=== PATIENT | male | born 1965 | race Caucasian/White ===

== ENCOUNTER 2021-06-11 14:16 | Outpatient (CLI) | payer MEDICAID, SELFPAY ==
--- NOTE | ~2021-06-11 | XR_ITS ---
EXAMINATION: XR knee RT 3V DATE: 06/11/2021 14:58 INDICATION: Right knee pain. TECHNIQUE: 3 views of right knee were obtained. COMPARISON: None. FINDINGS: There is lateral subluxation of patella. No fracture. There is mild osteoarthritis of media l compartment and moderate osteoarthritis of patellofemoral compartment. There is chondrocalcinosis o f the menisci. There is a small knee joint effusion. There is anterior knee soft tissue swelling. IMPRESSION: 1. Moderate right knee osteoarthritis. 2. Small right knee joint effusion. Reviewed, dictated and finalized at location A. MECHANISM MAKER
--- NOTE | ~2021-06-11 | XR_ITS ---
EXAMINATION: XR knee LT 3V DATE: 06/11/2021 14:58 INDICATION: Left knee pain. TECHNIQUE: 3 views of left knee were obtained. COMPARISON: None. FINDINGS: There is lateral subluxation of patella. No fracture. There is mild osteoarthritis of media l and lateral compartments and severe osteoarthritis of patellofemoral compartment. There is a modera te-sized knee joint effusion. IMPRESSION: 1. Severe left knee osteoarthritis. 2. Moderate-sized left knee joint effusion. Reviewed, dictated and finalized at location A. REAMER MACHINE OPERATOR
--- NOTE | ~2021-06-11 | XR_ITS ---
XR chest 2V 06/11/2021 14:58 Indication: Heart failure. New onset of shortness of breath. Procedure: PA and lateral views of the chest Comparison: Comparison to multiple prior studies sequentially, with oldest reviewed study dated 04/13. Findings: Status post median sternotomy for CABG. Cardiomegaly with mild interstitial edema. Small ri ght and moderate left pleural effusions. No pneumothorax. Impression: 1: Mild cardiomegaly with mild interstitial edema. 2: Bilateral pleural effusions, left greater than right. Reviewed, dictated and finalized at location B. O MACHINIST Impression: 1: Mild cardiomegaly with mild interstitial edema. 2: Bilateral pleural effusions, left greater than right.
--- NOTE | 2021-06-11 15:05 | ECG_ITS ---
Measurements Intervals [place] Rate: 99 P: 60 ND: 180 QRS: 110 QRSD: 94 T: -19 QT: 338 QTc: 435 Interpretive Statements SINUS RHYTHM RIGHT AXIS DEVIATION DELAYED PRECORDIAL R/S TRANSITION BORDERLINE ST-T WAVE ABNORMALITY- INFERIOR LEADS BORDERLINE ECG Electronically Signed On 06-11-2021 17:57:51 BLOOM CONVEYOR OPERATOR by Roe Rob D.O.
== END 2021-06-11 14:17 | disposition home or self-care (01) ==
PROVIDERS: PCP Family Medicine; Referring Provider Internal Medicine Cardiovascular Disease; Visit Provider Family Medicine
DX: I50.9 Heart failure, unspecified (principal); M25.461 Effusion, right knee; M17.0 Bilateral primary osteoarthritis of knee; M25.462 Effusion, left knee; J90 Pleural effusion, not elsewhere classified; I51.7 Cardiomegaly; R94.31 Abnormal electrocardiogram [ECG] [EKG]
CPT/HCPCS: 71046; 73562; 93005

== ENCOUNTER 2021-06-12 20:42 | Inpatient (IN) | payer OTHER, SELFPAY ==
--- NOTE | ~2021-06-12 | XR_ITS ---
EXAMINATION: XR chest 1V portable DATE: 06/12/2021 21:25 INDICATION: Shortness of breath. TECHNIQUE: A single frontal view of the chest was obtained. COMPARISON: Chest 2 views 06/11/2021, chest CT 10/14/2017 FINDINGS: There is a small left pleural effusion. There are airspace opacities in left mid and lower lung zones and right lower lung zone. No pneumothorax. Cardiomegaly is noted. There are changes of he art valve replacement. IMPRESSION: 1. Stable small left pleural effusion. 2. Worsened airspace opacities in left mid and lower lung zones and right lower lung zone, consistent with atelectasis versus pneumonia. 3. Cardiomegaly. Reviewed, dictated and finalized at location A. E DIALYSIS REGISTERED NURSE
--- NOTE | ~2021-06-12 | US_ITS ---
EXAMINATION: US venous doppler [facility] DATE: 06/14/2021 10:23 INDICATION: Shortness of breath and lower limb swelling TECHNIQUE: Grayscale ultrasound images without and with compression and Doppler ultrasound images of the bilateral lower extremity veins were obtained. COMPARISON: None. FINDINGS: The visualized portions of right common femoral vein, profunda (deep) femoral vein, femoral vein, pop liteal vein, posterior tibial veins, peroneal veins, gastrocnemius vein and greater saphenous vein ou tflow are patent. The visualized portions of left common femoral vein, profunda femoral vein, femoral vein, popliteal v ein, posterior tibial veins, peroneal veins, gastrocnemius vein and greater saphenous vein outflow ar e patent. IMPRESSION: 1. No deep venous thrombosis in either lower limb. Reviewed, dictated and finalized at location A. H ROLL WINDER
--- NOTE | ~2021-06-12 | CT_ITS ---
EXAMINATION: CT chest abdomen pelvis wo con DATE: 06/14/2021 16:36 INDICATION: Splenomegaly. TECHNIQUE: Computed tomography (CT) of the chest, abdomen, and pelvis was performed without intraveno us contrast. Automated exposure control and iterative reconstruction technique were employed. The dos e-length product was 1907.35 mGy-cm. COMPARISON: Chest CT 06/13/2021 FINDINGS: CHEST CT: There is mild atelectasis bilaterally. Calcified pulmonary nodules are consistent with old granulomat ous disease. There is a small left pleural effusion with pleural thickening. There is rounded atelect asis in left lower lobe adjacent to the pleura. Cardiomegaly is noted. There are coronary artery calc ifications. There are changes of coronary artery bypass grafting. Pericardial calcifications are note d. No pericardial effusion. There is mild mediastinal lymphadenopathy. ABDOMEN/PELVIS CT: The liver is normal. There is mild splenomegaly measuring 17.4 cm. There are gallstones in the gallbl adder, which is normal in size. The pancreas, adrenal glands, and kidneys are normal. There is no uro lithiasis. There is diverticulosis of the colon without evidence of diverticulitis. The appendix is n ot visualized. There is a small volume of ascites. Body wall edema is noted. There is a subxiphoid ve ntral hernia containing fat. There is mild left para-aortic lymphadenopathy. There is mild thoracolum bar spondylosis. IMPRESSION: 1. Stable small left pleural effusion with pleural thickening, likely an exudate. 2. Small volume of ascites. 3. Mild splenomegaly. 4. Mild mediastinal and left paracolic lymphadenopathy, likely reactive. 5. Calcific pericarditis. Reviewed, dictated and finalized at location A. DER OPERATOR EXTERNAL TOOL IMPRESSION: 1. Stable small left pleural effusion with pleural thickening, likely an exudat e. 2. Small volume of ascites. 3. Mild splenomegaly. 4. Mild mediastinal and left paracolic lymphadenopathy, likely reactive. 5. Calcific pericarditis.
--- NOTE | ~2021-06-12 | US_ITS ---
US abdomen complete EXAMINATION: US Abdomen Complete INDICATION: Acute renal insufficiency. PROCEDURE: Realtime High Resolution abdomen ultrasound. COMPARISON: No prior studies for comparison FINDINGS: There are echogenic foci in the gallbladder lumen which may represent stones or sludge. Meagan luation limited by patient body habitus. There is gallbladder wall thickening. Common bile duct karla ures 5 mm. Liver echotexture within normal limits without focal mass. Pancreas within normal limits. Pancreati c tail is obscured by bowel gas. Spleen is enlarged measuring 17.5 cm. Renal echotexture is within n ormal limits bilaterally without hydronephrosis, contour deforming mass or renal stone. Right kidney measures 11.9 cm. Left kidney measures 11.5 cm. Visualized aspects of the aorta and IVC are within normal limits. Portal vein is patent. No sonograph ic Sarah's sign indicated by the technologist. IMPRESSION: 1: Splenomegaly. 2: Echogenic foci in the gallbladder lumen which may represent stones or sludge. Mild gallbladder wa ll thickening. Reviewed, dictated and finalized at location A. EL BRIDGE ASSEMBLER IMPRESSION: 1: Splenomegaly. 2: Echogenic foci in the gallbladder lumen which may represent stones or sludg e. Mild gallbladder wall thickening.
--- NOTE | ~2021-06-12 | CT_ITS ---
EXAMINATION: CT tibia/fibula LT wo con DATE: 06/19/2021 16:41 INDICATION: Left justin/ankle cellulitis with persistent pain TECHNIQUE: High resolution computed tomography (CT) of the left tibia/fibula was performed without in travenous contrast. Additional sagittal and coronal reconstructions were performed. Automated exposur e control and iterative reconstruction technique were employed. The dose-length product was 1201.42 m Gy-cm. COMPARISON: None FINDINGS: Approximately 1 cm lateral patellar subluxation. Alignment is otherwise normal throughout the recess left lower leg from the distal thigh through the ankle and visualized hindfoot. Moderate to severe os teoarthritis at the patellofemoral articulation with joint space narrowing at the lateral side of the patellofemoral compartment with some cortical remodeling and mild subarticular cystlike changes mer g both the lateral patellar facet and lateral side of the lateral trochlea. Tiny marginal osteophytes at both the medial and lateral compartments. Cystic change at the intercondylar eminence. Small left knee joint effusion. Joint space at the left ankle and hindfoot are normal. Small Achilles calcaneal spurs. No cortical erosion or periosteal reaction to suggest osteomyelitis. No left ankle joint effusion. There is diffuse subcutaneous edema in the distal thigh through the vis ualized forefoot. There is skin thickening throughout the catheter with distal predominance which pepper ng the duodenum is consistent with given history of cellulitis. No loculated fluid collections to sug gest abscess. No subcutaneous gas or foreign bodies. There is thickening of the peroneal tendons at t he level of the tip of the lateral malleolus consistent with tendinopathy. IMPRESSION: 1. Skin thickening and subcutaneous edema throughout the left calf consistent with cellulitis without evident abscess, soft tissue gas or osteomyelitis. 2. Moderate to severe left patellofemoral osteoarthritis. 3. Peroneal tendinopathy. Reviewed, dictated and finalized at location B. SCRIPTION MANAGER IMPRESSION: 1. Skin thickening and subcutaneous edema throughout the left calf consistent w ith cellulitis without evident abscess, soft tissue gas or osteomyelitis. 2. Moderate to severe left patellofemoral osteoarthritis. 3. Peroneal tendinopathy.
--- NOTE | ~2021-06-12 | CT_ITS ---
EXAMINATION: CT diagnostic chest wo con DATE: 06/13/2021 04:21 INDICATION: Left lower lobe pneumonia TECHNIQUE: Computed tomography (CT) of the chest was performed without intravenous contrast. The dose -length product was 906.92 mGy-cm. Automated exposure control and iterative reconstruction technique were employed. COMPARISON: CT dated 10/14/2017 FINDINGS: Small left and trace right pleural effusions with underlying compressive atelectasis. Cardi omegaly with pericardial calcification, which can be associated with constrictive pericarditis. There are nonenlarged mediastinal lymph nodes, most likely reactive. Status post median sternotomy for CAB G. Stable nonspecific left adrenal thickening. Small amount of ascites in the upper abdomen partially visualized. No endobronchial lesions. There is a upper abdominal ventral hernia containing fat. Ther e are scattered pulmonary nodules throughout both lungs, most of which are calcified, consistent with chronic granulomatous disease. Mild thoracic spondylosis. IMPRESSION: 1. Small pleural effusions, left greater than right with underlying compressive atelectasis. Superimp osed pneumonia not excluded. 2: Cardiomegaly with pericardial calcifications. Correlate clinically for indications of constrictive pericarditis. 3: Ascites. Reviewed, dictated and finalized at location B. TECHNICAL ARCHITECT IMPRESSION: 1. Small pleural effusions, left greater than right with underlying compressive atelectasis. Superimposed pneumonia not excluded. 2: Cardiomegaly with pericardial calcifications. Correlate clinically for indic ations of constrictive pericarditis. 3: Ascites.
[2021-06-12 20:56] VITALS: BP 164/92; PULSE 126; RESP 33; TEMP 37.5; O2SAT 89
[2021-06-12 21:02] VITALS: PULSE 126; O2SAT 94
--- NOTE | 2021-06-12 21:15 | ECG_ITS ---
Measurements Intervals [place] Rate: 125 P: 55 MO: 150 QRS: 112 QRSD: 93 T: 27 QT: 274 QTc: 396 Interpretive Statements SINUS TACHYCARDIA DELAYED PRECORDIAL R/S TRANSITION BORDERLINE T WAVE ABNORMALITY- INF/HIGH LAT LEADS BASELINE ARTIFACT- I, II, III, AVR, AVL, AVF, V3-V6 ABNORMAL ECG Electronically Signed On 06-13-2021 6:32:44 WAD IMPREGNATOR by Roe Rob D.O.
--- NOTE | 2021-06-12 21:22 | ED.GENADULT ---
HPI - General Adult General Chief complaint: Shortness of Breath/Dyspnea Stated complaint: sob chills hx chf Time Seen by Provider: 06/12/21 21:06 History of Present Illness HPI narrative: Patient 56-year-old gentleman who presents the emergency department with chief complaint of shortness of breath. Patient reports that he has history of a cardiac bypass in the past around 2016 the patient states he has not had insurance and is noticed over the last month or so that has been having increasing peripheral edema and increasing shortness of breath worse with exertion. The patient states he has 3 pillow orthopnea reports that he is having episodes of PND as well patient states that he just got approval for insurance and went and saw her primary care physician for referral to cardiology but stated that his breathing got worse today. The patient reports he is not on home oxygen. Patient reports that he has pitting edema all the way up to his abdominal wall Related Data Allergies Allergy/AdvReac Type Severity Reaction Status Date / Time No Known Allergies Allergy Verified 06/12/21 21:02 Review of Systems Review of Systems: A 10 system review of systems was completed on the patient and is negative except for what is stated in the HPI. Nursing and ancillary documentation was reviewed. [facility] Family History Family History Mother Patient's mother is in good health Diabetes mellitus Father Carcinoma of colon, Onset Age: 36 Sibling Colon polyp Other Family history of coronary artery disease Social History Social History Smoking status: Former smoker Smoking end date: 07/13/15 Alcohol intake: never Exam Narrative: GENERAL: Well-appearing, well-nourished, and in no acute distress. HEAD: Normocephalic, atraumatic. EYES: PERRLA and EOMI. ENT: Nares clear, no rhinorrhea or epistaxis. Mucous membranes moist. NECK: Supple. CHEST: Clear to auscultation. Mild respiratory distress. HEART: Regular rate and rhythm. No murmur heard. Normal peripheral pulses. ABDOMEN: Soft, nontender, nondistended, normal active bowel sounds. EXTREMITIES: Normal range of motion. 4+ edema. SKIN: Warm, dry, no rash. NEURO: No focal deficits. Alert and oriented x3. PSYCH: Normal mood and affect. Course Vital Signs Vital signs: Vital Signs Temperature 37.5 C 06/12/21 20:56 Pulse Rate 126 H 06/12/21 20:56 Respiratory Rate 33 H 06/12/21 20:56 Blood Pressure 164/92 H 06/12/21 20:56 Pulse Oximetry 89 L 06/12/21 20:56 Temperature 37.5 C 06/12/21 20:56 Pulse Rate 126 H 06/12/21 21:02 Respiratory Rate 33 H 06/12/21 20:56 Blood Pressure 164/92 H 06/12/21 20:56 Pulse Oximetry 94 06/12/21 21:02 Medical Decision Making Vital Signs Vital Signs: Vital Signs Temperature 37.5 C 06/12/21 20:56 Pulse Rate 126 H 06/12/21 20:56 Respiratory Rate 33 H 06/12/21 20:56 Blood Pressure 164/92 H 06/12/21 20:56 Pulse Oximetry 89 L 06/12/21 20:56 Temperature 37.5 C 06/12/21 20:56 Pulse Rate 126 H 06/12/21 21:02 Respiratory Rate 33 H 06/12/21 20:56 Blood Pressure 164/92 H 06/12/21 20:56 Pulse Oximetry 94 06/12/21 21:02 Lab Data Result diagrams: 06/12/21 22:03 06/12/21 22:04 Labs: Lab Results 06/12/21 06/12/21 06/12/21 Range/Units 22:03 22:04 22:04 WBC 17.1 H (4.5-10.0) K/mm3 RBC 3.84 L (4.6-6.20) M/mm3 Hgb 11.5 L (14.0-18.0) g/dL Hct 36.8 L (42.0-52.0) % MCV 95.8 (80-100) fl MCH 29.9 (26-34) pg MCHC 31.3 L (32-36) g/dl RDW 18.3 H (11.5-14.5) % Plt Count 126 L (150-375) k/mm3 MPV 10.4 (7.4-10.4) fl Immature Gran % (Auto) 0.8 H (0-0.5) % Neut % (Auto) 91.2 H (45.5-73.1) % Lymph % (Auto) 2.3 L (18.3-44.2) % Lee % (Auto) 4.7 (2.6-8.5) % Eos % (Auto) 0
[2021-06-12 21:43] LABS: Alveolar/Arterial O2 Gradient 103.8 mmHg; Base Excess ABG 0.3 mEq/l (+/-2.0); Fractional Inspired Oxygen 28 %; HCO3 ABG 22.5 mEq/l (22.0-26.0); Oxygen Content ABG 15.5 %vol (16.0-22.0); Oxygen Saturation ABG 93.9 % (95.0-100.0); Oxyhemoglobin 90.3 % THb (90.0-100.0); PCO2 ABG 29.1 mmHg (35.0-45.0); PO2 ABG 61.5 mmHg (80.0-100.0); Total Hemoglobin 12.2 g/dL (12.0-18.0)
[2021-06-12 21:44] LABS: Device NASAL CANNULA; Modified Allen's Test Pass; Site Drawn RIGHT RADIAL; pH ABG 7.506 (7.350-7.450)
[2021-06-12] MEDS: NITROGLYCERIN OINTMENT 1 INCH DOSE TRANSDERM (22:10)
[2021-06-12] MEDS: FUROSEMIDE INJ 40 MG/4 ML VIAL IV PUSH (22:10)
[2021-06-12 22:19] LABS: Basophils Absolute Auto 0.1 K/mm3 (0.0-0.1); Basophils Percent Auto 0.5 % (0.2-1.2); Eosinophils Absolute Auto 0.1 K/mm3 (0-0.3); Eosinophils Percent Auto 0.5 % (0-4.4); Hematocrit 36.8 % (42.0-52.0); Hemoglobin 11.5 g/dL (14.0-18.0); Immature Granulocyte Absolute 0.14 K/mm3 (0.00-0.031); Immature Granulocyte Percent A 0.8 % (0-0.5); Immature Platelet Fraction Pct 4.5 % (0.9-11.2); Lymphocytes Absolute Auto 0.39 K/mm3 (0.9-3.2); Lymphocytes Percent Auto 2.3 % (18.3-44.2); Mean Corpuscular HGB Conc 31.3 g/dl (32-36); Mean Corpuscular Hemoglobin 29.9 pg (26-34); Mean Corpuscular Volume 95.8 fl (80-100); Mean Platelet Volume 10.4 fl (7.4-10.4); Monocytes Absolute Auto 0.8 K/mm3 (0.1-0.6); Monocytes Percent Auto 4.7 % (2.6-8.5); Neutrophils Absolute Auto 15.6 K/mm3 (1.3-6.7); Neutrophils Percent Auto 91.2 % (45.5-73.1); Platelet Count Result 126 k/mm3 (150-375); Red Blood Count 3.84 M/mm3 (4.6-6.20); Red Cell Distribution Width 18.3 % (11.5-14.5); White Blood Count 17.1 K/mm3 (4.5-10.0)
[2021-06-12 22:33] LABS: Alanine Aminotransferase 20 U/L (4-50); Albumin Level 4.4 g/dL (3.5-5.1); Alkaline Phosphatase 138 U/L (38-126); Anion Gap 9 mmol/L (8-16); Aspartate Amino Transferase 36 U/L (17-59); Bilirubin,Total 2.8 mg/dL (0.2-1.3); Blood Urea Nitrogen 18 mg/dL (9-20); Calcium 9.7 mg/dL (8.4-10.2); Carbon Dioxide 27 mmol/L (22-30); Chloride 98 mmol/L (98-107); Estimated CRCL calculation 81 ml/min; Estimated Glomerular Filt Rate 52; Glucose 117 mg/dL (65-110); INR 1.4; Magnesium 1.7 mg/dL (1.6-2.3); Potassium 4.6 mmol/L (3.4-5.0); Sodium 134 mmol/L (137-145)
[2021-06-12 22:34] LABS: Lactic Acid Reflex 2.2 mmol/L (0.7-2.1); Partial Thromboplastin Time 30.5 SECONDS (22.3-36.8)
[2021-06-12 23:09] LABS: NT Pro B Type Natriuretic Pept 4390 pg/mL (5-100); Troponin I 0.046 ng/mL (0.000-0.034)
[2021-06-12] MEDS: ASPIRIN 81 MG CHEWABLE TABLET 324 MG PO (23:47)
[2021-06-12 23:48] VITALS: BP 127/69; PULSE 126; RESP 26; O2SAT 93
[2021-06-13] VITALS (70 sets, daily range): BP systolic 94–137; BP diastolic 58–86; PULSE 95–124; RESP 16–31; TEMP 36.8; O2SAT 91–100; BMI 45.2
--- NOTE | 2021-06-13 | ECHO_ITS ---
Patient Info Name: Donta Copeland Age: 56 years : 1965 Gender: Male Ht: 72 in Wt: 342 lbs BSA: 2.88 m2 HR: 100 bpm BP: 107 / 72 mmHg Heart Rhythm: Sinus Rhythm Technical Quality: Poor Exam Date: 06/13/2021 11:57 AM Exam Location: [facility] Patient Status: Inpatient Admit Date: 06/13/2021 Staff Ordering Physician: Rajat Li MD Gas Singer: Kamla Pinto RDCS Attending Provider: Rajat Li MD Exam Type: CA echo dop color flow w con Study Info Indications R06.02 - Shortness of breath - ELEVATED TROPONIN Complete two-dimensional, color flow and Doppler transthoracic echocardiogram is performed with contrast to opacify the left ventricle and to improve the deliniation of the left ventricle endocardial borders. Contrast/Agitated Saline Contrast/Ag. Saline: Definity Amount: 2.00 ml Administered By: Ashley Ch RN Electric Track Switch Maintainer Services Existing IV Access: Yes IV Access Condition: patent with no signs of infiltration Reason for Poor Study: patient body habitus Summary 1. Mild left ventricular enlargement with mild concentric hypertrophy. Overall good systolic function of all segments, ejection fraction 55-60%, with no segmental wall motion abnormalities. Grade 2 diastolic dysfunction is noted. 2. Right ventricular chamber dimension is mildly enlarged with mild to moderate hypokinesis, though poorly visualized. 3. A mitral valve annuloplasty ring appears to be present. There is trace mitral regurgitation. 4. There is flattening of the interventricular septum during systole and diastole consistent volume overload. 5. Moderate pulmonary hypertension, estimated pulmonary arterial systolic pressure is 55 mmHg. 6. There is mild tricuspid valve regurgitation. 7. Technically difficult study. 8. Sinus rhythm. Left Ventricle Left ventricular chamber dimension is mildly enlarged. Left ventricular systolic function is normal, estimated at 55-60%. There is mildly increased left ventricular wall thickness. Left ventricular septal wall motion is normal. The left ventricular diastolic function is grade II diastolic dysfunction. Right Ventricle Right ventricular chamber dimension is mildly enlarged with mild to moderate hypokinesis, though poorly visualized. Right ventricular systolic function is reduced. Left Atria Left atrial chamber dimension is severely enlarged. Right Atria Right atrial chamber dimension is normal. Aortic Valve The aortic valve is trileaflet. There is moderate aortic valve sclerosis. There is no aortic valve stenosis. There is no aortic valve regurgitation. There is mild aortic valve calcification. Pulmonic Valve The pulmonic valve is normal. There is no pulmonic valve stenosis. There is no pulmonic regurgitation. Mitral Valve The annuloplasty ring prosthetic mitral valve leaflefts are Empty. There is no stenosis of the annuloplasty ring prosthetic mitral valve. There is trace regurgitation of the annuloplasty ring prosthetic mitral valve. Tricuspid Valve The tricuspid valve leaflets are normal. There is no significant tricuspid valve stenosis. There is mild tricuspid valve regurgitation. Moderate pulmonary hypertension, estimated pulmonary arterial systolic pressure is 55 mmHg. Pericardium/Pleural The pericardium appears normal. There is no pericardial effusion. Inferior Vena Cava Not well visualized inferior vena ca
[2021-06-13 01:15] LABS: Reflex Lactic Acid Yes or No Add Lactic
[2021-06-13 02:38] LABS: Lactic Acid 2.4 mmol/L (0.7-2.1)
--- NOTE | 2021-06-13 03:53 | PM.IMHP ---
H&P: HPI History of Present Illness Date/Time: 06/13/21 03:53 Chief Complaint: Shortness of breath Narrative: This is a 56-year-old gentleman who presents to the ER with complaint of shortness of breath. He has a history of coronary artery disease status post bypass surgery in 2017 has lost follow-up due to lack of insurance. He noticed increasing lower extremity edema and worsening shortness of breath on exertion since past month or so. There is also associated orthopnea and episodes of PND. He had had gone to see his primary care doctor with metal referral to Cardiology but since the breathing got worse he came to the ER for evaluation. He denies any chest pain. Delete that In the ER he was noted to be hypoxia was placed on oxygen via nasal cannula. He was also noted to be tachycardic 120s upon arrival. Laboratory evaluation showed leukocytosis 17,000 with mild thrombocytopenia. Mild renal insufficiency noted with creatinine of 1.4 along with lactic acidosis of 2.4. He had the mildly elevated troponin at 0.046 with elevated BNP of 4390. His ABG showed respiratory alkalosis. His EKG showed sinus tachycardia with out any acute ST-T changes. A chest x-ray revealed small left pleural effusion with consultation on left mid and lower zone along with cardiomegaly. 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 The biopsy was nondiagnostic at that time with findings of scant fragments of fibrin, blood and degenerated cells. He states that follow up CT chest after that showed resolution of the mass. He is admitted for further evaluation and management Review of Systems Review of Systems: - CONSTITUTIONAL: Denies weight loss, fever and chills. - HEENT: Denies changes in vision and hearing - RESPIRATORY: reports SOB and denies cough. - CV: Denies palpitations and CP. - GI: Denies abdominal pain, nausea, vomiting and diarrhea. - : Denies dysuria and urinary frequency. - MSK: Denies myalgia and joint pain. - SKIN: Denies rash and pruritus. - NEUROLOGICAL: Denies headache and syncope. - PSYCHIATRIC: Denies recent changes in mood. Denies anxiety and depression. All systems reviewed & are unremarkable except as noted in HPI and below Constitutional: Constitutional: Reports fatigue and Reports weakness Neurologic: Reports weakness Endocrine: Endocrine: Reports fatigue PMFSH Family History Family History Mother Patient's mother is in good health Diabetes mellitus Father Carcinoma of colon, Onset Age: 36 Sibling Colon polyp Other Family history of coronary artery disease Social History Social History Smoking status: Former smoker Smoking end date: 07/13/15 Alcohol intake: never Meds Home Medications and Allergies Home Medications Medication Instructions Recorded Confirmed Type atorvastatin 40 mg tablet 40 mg PO .COMPLEX #90 tablet 08/02/19 Rx Allergies Allergy/AdvReac Type Severity Reaction Status Date / Time No Known Allergies Allergy Verified 06/12/21 21:02 Vital Signs Vital Signs - 24 hr 06/12/21 20:56 06/12/21 21:02 06/12/21 23:48 Temperature 99.5 F Pulse Rate 126 H 126 H 126 H Respiratory Rate 33 H 26 H Blood Pressure 164/92 H 127/69 Pulse Oximetry 89 L 94 93 06/13/21 00:01 06/13/21 01:34 06/13/21 02:01 Temperature Pulse Rate 124 H 118 H 117 H Respiratory Rate 24 H 24 H 24 H Blood Pressure 113/58 L 94/62 L 102/67 Pulse Oximetry 91 92 95 06/13/21 03:00 Temperature Pulse Rate 114 H Respiratory Rate 22 H Blood Pressure 116/65 Pulse Oximetry 96 Exam Narrative: GENERAL: Well-appearing, well-nourished, and in no acute distress. HEAD: Normocephalic, atraumatic. EYES: PERRLA and EOMI. ENT: Nares clear, no rhinorrhea or epistaxis. Mucous m
--- NOTE | 2021-06-13 07:17 | PC.NURSE ---
placed order for pt breakfast.
[2021-06-13] MEDS: POTASSIUM CHLORIDE 20 MEQ TABLET.ER PO ×2 (08:45→18:12)
[2021-06-13] MEDS: ASPIRIN 81 MG ENTERIC TABLET PO (08:45)
[2021-06-13] MEDS: ENOXAPARIN 40 MG/0.4 ML SYRINGE SUB-Q (08:46)
[2021-06-13] MEDS: FUROSEMIDE INJ 40 MG/4 ML VIAL 60 MG IV PUSH (09:00)
--- NOTE | 2021-06-13 12:47 | PC.NURSE ---
went in for food order but patient requested no food at this time only drink
[2021-06-13] MEDS: PERFLUTREN LIPID MICROSPHERES 1.5 ML VIAL DILUTED TO 10 ML TOTAL VOLUME IV PUSH (12:57)
--- NOTE | 2021-06-13 18:11 | PM.IMPN ---
Progress Note: A&P Assessment and Plan (1) Septicemia: Code(s): A41.9 - Sepsis, unspecified organism Status: Acute Assessment and Plan: Blood cultures x2 positive for Gram-positive cocci in chains in the anaerobic and aerobic bottles. Source is possibly lung but felt more likely from cellulitis. Could still be contaminant. Continue Rocephin. Add Vancomycin. Repeat BCx in 1-2 days (2) Cellulitis of left leg: Code(s): L03.116 - Cellulitis of left lower limb Status: Acute Assessment and Plan: Probably cellulitis of the left lower leg. Wll check dopplers. Continue IV abx. (3) Acute respiratory failure: Code(s): J96.00 - Acute respiratory failure, unspecified whether with hypoxia or hypercapnia Status: Acute Assessment and Plan: Patient presents with acute respiratory failure. CT without contrast showing mostly left side pleural effusion with airspace disease. Consider symptoms related to constrictive pericarditis. (4) Acute exacerbation of CHF (congestive heart failure): Qualifiers: Heart failure type: unspecified Qualified Code(s): I50.9 - Heart failure, unspecified Code(s): I50.9 - Heart failure, unspecified Status: Acute Assessment and Plan: BNP 4390. Chest x-ray and CT of the chest not showing significant pulmonary edema but he is massively edematous. CHF? Cirrhosis? Blood cultures positive. Cardiology consult ordered for the a constrictive pericarditis. Check abd US to assess for ascites, cirrhosis. 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 Consider constrictive pericarditis. (6) Elevated troponin: Code(s): R77.8 - Other specified abnormalities of plasma proteins Status: Acute Assessment and Plan: Troponin elevated to 1.21. EKG showing no acute changes and no chest pain. (7) Left lower lobe pneumonia: Code(s): J18.9 - Pneumonia, unspecified organism Status: Acute Assessment and Plan: Chest x-ray showing airspace opacities left mid lower lung zones. CT the chest without contrast showing small pleural effusions left greater than right with compressive atelectasis. Superimposed pneumonia cannot be excluded. Has a history of a left lung mass, with subsequent resolution. He was started Rocephin azithromycin which will continue. Blood cultures positive as mentioned above. Vancomycin added. (8) Lactic acidosis: Code(s): E87.2 - Acidosis Status: Acute Assessment and Plan: Lactic acid elevated on admission to 2.4. Related to above. (9) Chronic kidney disease, stage 3: Code(s): N18.30 - Chronic kidney disease, stage 3 unspecified Status: Acute Assessment and Plan: On previous visits, patient's creatinine has been noted run from 1.6-1.9. Creatinine 1.4 admission. He is not on IV fluids for with concern for CHF. Monitor creatinine closely while on IV Lasix. (10) Leukocytosis: Qualifiers: Leukocytosis type: unspecified Qualified Code(s): D72.829 - Elevated white blood cell count, unspecified Code(s): D72.829 - Elevated white blood cell count, unspecified Status: Acute Assessment [place] Plan: [place] [address] related to sepsis. As above. Continue to monitor. (11) DVT prophylaxis: Code(s): Z29.9 - Encounter for prophylactic measures, unspecified Status: Acute Assessment and Plan: Lovenox (12) CAD (coronary artery disease): Code(s): I25.10 - Atherosclerotic heart disease of [place] coronary artery without angina pectoris Status: Acute Assessment and Plan: hx of CAD s/p CABG 2017, lost follow up since then. Has seen Dr. Spears in the past. Continue ASA, Lipitor. Subjective Date/time seen:
[2021-06-13 19:04] LABS: Hematocrit 32.9 % (42.0-52.0); Hemoglobin 10.5 g/dL (14.0-18.0); Mean Corpuscular HGB Conc 31.9 g/dl (32-36); Mean Corpuscular Hemoglobin 30.2 pg (26-34); Mean Corpuscular Volume 94.5 fl (80-100); Mean Platelet Volume 11.9 fl (7.4-10.4); Platelet Count Result 93 k/mm3 (150-375); Red Blood Count 3.48 M/mm3 (4.6-6.20); Red Cell Distribution Width 18.5 % (11.5-14.5)
[2021-06-13 19:12] LABS: Anion Gap 12 mmol/L (8-16); Blood Urea Nitrogen 26 mg/dL (9-20); Carbon Dioxide 23 mmol/L (22-30); Chloride 98 mmol/L (98-107); Estimated CRCL calculation 68 ml/min; Estimated Glomerular Filt Rate 42; Glucose 108 mg/dL (65-110); Sodium 133 mmol/L (137-145)
[2021-06-13 19:26] LABS: Lactic Acid Reflex 1.7 mmol/L (0.7-2.1)
[2021-06-13] MEDS: ATORVASTATIN 40 MG TABLET PO (22:23)
--- NOTE | 2021-06-13 23:46 | ADMGEN ---
This patient, Donta Copeland, was admitted to IMU Room 211-01 at 2340. Patient/family oriented to hospital policies and general routines including ID bracelet, bed and alarms, visiting hours, pain management, procedures, bathroom and other care routines, personal items, smoking policy, room service/diet, and visiting hours. Information on how to activate the Rapid Response Team has been discussed. Patient/Family are encouraged to report perceived risks to care and to ask questions if they do not understand what they are told or what they should do.
[2021-06-14] VITALS (17 sets, daily range): BP systolic 110–136; BP diastolic 73–82; PULSE 97–107; RESP 18–22; TEMP 36.1–37.1; O2SAT 98–100
[2021-06-14 05:45] LABS: Basophils Absolute Auto 0.1 K/mm3 (0.0-0.1); Basophils Percent Auto 0.4 % (0.2-1.2); Eosinophils Percent Auto 0.2 % (0-4.4); Hematocrit 30.9 % (42.0-52.0); Hemoglobin 9.8 g/dL (14.0-18.0); Immature Granulocyte Absolute 0.07 K/mm3 (0.00-0.031); Immature Granulocyte Percent A 0.5 % (0-0.5); Immature Platelet Fraction Pct 6.1 % (0.9-11.2); Lymphocytes Absolute Auto 0.67 K/mm3 (0.9-3.2); Lymphocytes Percent Auto 4.8 % (18.3-44.2); Mean Corpuscular HGB Conc 31.7 g/dl (32-36); Mean Corpuscular Hemoglobin 29.9 pg (26-34); Mean Corpuscular Volume 94.2 fl (80-100); Mean Platelet Volume 11.6 fl (7.4-10.4); Monocytes Absolute Auto 0.9 K/mm3 (0.1-0.6); Monocytes Percent Auto 6.6 % (2.6-8.5); Neutrophils Absolute Auto 12.3 K/mm3 (1.3-6.7); Neutrophils Percent Auto 87.5 % (45.5-73.1); Platelet Count Result 96 k/mm3 (150-375); Red Blood Count 3.28 M/mm3 (4.6-6.20); Red Cell Distribution Width 18.2 % (11.5-14.5)
[2021-06-14 05:51] LABS: Alanine Aminotransferase 24 U/L (4-50); Albumin Level 3.7 g/dL (3.5-5.1); Alkaline Phosphatase 101 U/L (38-126); Anion Gap 10 mmol/L (8-16); Aspartate Amino Transferase 66 U/L (17-59); Bilirubin,Total 2.9 mg/dL (0.2-1.3); Blood Urea Nitrogen 26 mg/dL (9-20); Calcium 8.7 mg/dL (8.4-10.2); Carbon Dioxide 23 mmol/L (22-30); Chloride 97 mmol/L (98-107); Estimated CRCL calculation 71 ml/min; Estimated Glomerular Filt Rate 45; Glucose 123 mg/dL (65-110); Potassium 3.8 mmol/L (3.4-5.0); Sodium 130 mmol/L (137-145)
[2021-06-14] MEDS: ASPIRIN 81 MG ENTERIC TABLET PO (08:39)
[2021-06-14] MEDS: ENOXAPARIN 40 MG/0.4 ML SYRINGE SUB-Q (08:39)
[2021-06-14] MEDS: POTASSIUM CHLORIDE 20 MEQ TABLET.ER PO ×2 (08:40→17:08)
[2021-06-14] MEDS: FUROSEMIDE INJ 40 MG/4 ML VIAL 60 MG IV PUSH ×2 (08:40→21:39)
[2021-06-14 09:47] LABS: Add Urine Microscopic? YES; Appearance Urine Cloudy (Clear); Bilirubin Urine Negative (Negative); Blood Urine 1+ (Negative); Color Urine Amber (Yellow); Glucose Urine UA Negative (Negative); Ketones Urine Negative (Negative); Leukocyte Esterase Ur Negative LEU/UL (Negative); Mucus Urine Rare /lpf; Nitrate Urine Negative (Negative); Protein Urine 1+ mg/dL (Negative); Specific Grav Ur 1.027 (1.001-1.035); Squamous Epithelial Cell Urine Rare /hpf (Few); WBC Urine 0-3 /hpf
--- NOTE | 2021-06-14 10:06 | PM.IMPN ---
Progress Note: A&P Assessment and Plan (1) Septicemia: Code(s): A41.9 - Sepsis, unspecified organism Status: Acute Assessment and Plan: Blood cultures x2 positive for Strept G. Source is felt more likely from cellulitis. Continue Rocephin. Stop Vancomycin. Follow up on BCx results. (2) Cellulitis of left leg: Code(s): L03.116 - Cellulitis of left lower limb Status: Acute Assessment and Plan: Patient with cellulitis of the left lower leg. LE dopplers negative for DVT. Continue IV abx. (3) Acute respiratory failure: Code(s): J96.00 - Acute respiratory failure, unspecified whether with hypoxia or hypercapnia Status: Acute Assessment and Plan: Patient presents with acute respiratory failure. CT without contrast showing mostly left side pleural effusion with airspace disease. [place] related to CHF. Sepsis related to cellulits. (4) Acute exacerbation of CHF (congestive heart failure): Qualifiers: Heart failure type: unspecified Qualified Code(s): I50.9 - Heart failure, unspecified Code(s): I50.9 - Heart failure, unspecified Status: Acute Assessment and Plan: BNP 4390. Chest x-ray and CT of the chest not showing significant pulmonary edema but he is massively edematous. Echo showing EF55-60%, Grade II diastolic dysfunction, RV hypokinesis,volume overload with moderate pulmonary HTN. Mitral ring well placed. Blood cultures positive related to the cellulitis. Abd US showing splenomegaly but no evidence of cirrhosis or ascites. Continue Lasix IV. CHF teaching. Daily weights. Check for mono. Check CT abdomen given the enlarged spleen. Check LDH (5) Splenomegaly: Code(s): R16.1 - Splenomegaly, not elsewhere classified Status: Acute Assessment and Plan: Abd US showing splenomegaly but no evidence of cirrhosis or ascites. Plt count low but stable felt related to splenomegaly so may be more chronic. Etiology could be CHF, mono, bacterial septicemia, viral hepatitis, HIV, RA, SLE or sarcoid. 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 Echo showing normal pericardium and no effusion. Constrictive pericarditis felt less likely. Echo 04/25/17 showing moderate pericardial effusion and evidence of post-pericardectomy. Suspect CT scan findings related to previous surgery. (7) Elevated troponin: Code(s): R77.8 - Other specified abnormalities of plasma proteins Status: Acute Assessment and Plan: Troponin elevated to 1.21. EKG showing no acute changes and no chest pain. Suspect nonischemic myocardial injury relaetd to the fluid overload and sepsis. (8) Left lower lobe pneumonia: Code(s): J18.9 - Pneumonia, unspecified organism Status: Acute Assessment and Plan: Chest x-ray showing airspace opacities left mid lower lung zones. CT the chest without contrast showing small pleural effusions left greater than right with compressive atelectasis. Superimposed pneumonia cannot be excluded but felt less likely. Has a history of a left lung mass with subsequent resolution. He was started Rocephin and azithromycin which will continue. Blood cultures positive as mentioned above. Vancomycin added. (9) Lactic acidosis: Code(s): E87.2 - Acidosis Status: Acute Assessment and Plan: Lactic acid elevated on admission to 2.4 but normal on repeat. Related to above. (10) CAD (coronary artery disease): Code(s): I25.10 - Atherosclerotic heart disease of [place] coronary artery without angina pectoris Status: Acute Assessment and Plan: Patient presented 03/25/17 with SOB and found to have inferior STEMI. He underwent LHC but unable to open a thrombosed RCA. Severe MR noted. He was sent to [facility] for CABG x2 ([facility]
--- NOTE | 2021-06-14 13:49 | PC.NURSE ---
On 06/14/21, the student, [Cassie Huffman], provided care and completed [facility] documentation on this patient. I have reviewed the student's documentation and agree with the findings.
--- NOTE | 2021-06-14 14:50 | PM.CNCAR ---
Assessment and Plan Additional Plan 56-year-old man with history of coronary artery disease presenting with acute coronary syndrome several years ago in 2017 at that time he was referred to [facility] for surgical revascularization on also had mitral valve ring annuloplasty performed. He does not have any left ventricular systolic dysfunction and enters the hospital with marked volume overload which obviously has accumulated over a long time more than several weeks which is what he describes by history. It is interesting that his chest auscultation sounds quite clear despite the congested appearance of his x-ray. He has responded so some IV furosemide. There was also concern about the appearance of his CT that his pericardium is calcified and he may have some constrictive physiology. At this time I would recommend continuing IV loop diuretics and I would start a moderate dose of metoprolol and lisinopril. He does have some chronic kidney disease but this is not new and not a contraindication to KENNETH-inhibitor therapy. I would anticipate is going to take a fairly long hospitalization to improve the marked volume overload with which he presents. Once he is discharged we can certainly discuss with him arranging for advanced imaging such as cardiac MRI at [place] to further evaluate the issue about constrictive physiology. Heath Mckenzie MD [facility] History of Present Illness History of Present Illness Consult date/time: 06/14/21 14:50 Consult reason: congestive heart failure Reason For Visit: CHF Acute Exacerbation, Elevated Trop,Leukocytosis Narrative: This is a 56-year-old man with a history of coronary artery disease and valvular heart disease who I am seeing at the request of the hospitalist for assistance with the management of congestive heart failure as well as regarding concerns about possible constrictive pericarditis. The patient is unknown to me prior to this consultation. He had been under the care of my partner, Dr. Marcelino in the past but has not seen him for a couple of years because he said he lost his insurance and could not afford appointments. Because of this he has not been on any of his medication for about that period of time. He lives at home with his mother and apparently he has been experiencing progressive lower extremity volume overload with edema up to the waist for a long time. He then started to experience some shortness of breath and decided to come into the hospital yesterday. He was found to be markedly volume overloaded. Echocardiogram was done yesterday and interpreted by my partner showing normal left ventricular systolic function, grade 2 diastolic noncompliance and evidence of at least moderately elevated pulmonary artery pressure. A CT scan of his chest did not show any evidence of pulmonary embolism but was remarkable for pericardial calcification and so the thought was the patient could also have constrictive physiology. In this setting I am seeing him in consultation today. He has been receiving intravenous furosemide with some diuresis since admission yesterday. He is not receiving any other medical treatment for this and I am seeing him in consultation in this situation. He does not report any chest pain he is not reporting any orthopnea. He has no history of palpitations or syncope. According to the records he has a history of coronary artery disease presenting initially in 2017 with acute coronary syndrome. He was sent to [facility] for surgical myocardial revascularization apparently he had a totally occluded right coronary artery and received BALWINDER graft to the LAD and a vein graft to the RPDA. He also had a mitral valve ring annuloplasty performed. The chart indicates there was some postoperative atrial fibrillation that for a period of time was managed with amiodarone and that had subsequently been discontinued. Once again his last visit in our office was in 2019. Review of Systems Constitution
[2021-06-14] MEDS: CHOLECALCIFEROL 1,000 UNITS TABLET 2000 UNITS PO (17:08)
[2021-06-14] MEDS: MULTIVITAMINS THERAPEUTIC TAB (*BKC) 1 TABLET PO (17:09)
--- NOTE | 2021-06-14 18:26 | ECG_ITS ---
Measurements Intervals [place] Rate: 96 P: 64 WV: 153 QRS: 104 QRSD: 105 T: -14 QT: 345 QTc: 437 Interpretive Statements SINUS RHYTHM VENTRICULAR PREMATURE COMPLEX RIGHT AXIS DEVIATION DELAYED PRECORDIAL R/S TRANSITION BORDERLINE T WAVE ABNORMALITY- INF/LAT LEADS BORDERLINE ECG Electronically Signed On 06-14-2021 15:13:25 [employer] by Roe Rob D.O.
[2021-06-14] MEDS: FAMOTIDINE 10 MG TABLET PO (21:40)
[2021-06-14] MEDS: ATORVASTATIN 40 MG TABLET PO (21:41)
[2021-06-14] MEDS: FERROUS SULFATE 324 MG TABLET PO (21:41)
[2021-06-15] VITALS (18 sets, daily range): BP systolic 103–135; BP diastolic 58–79; PULSE 84–98; RESP 18–22; TEMP 35.6–37.1; O2SAT 92–100
--- NOTE | 2021-06-15 00:05 | PCRCNOTE ---
Apnea link not done tonight due to patient being given lasix at bed time. Apnea link will be completed the night of 06/15/21
[2021-06-15 08:11] LABS: Basophils Percent Auto 0.5 % (0.2-1.2); Eosinophils Absolute Auto 0.2 K/mm3 (0-0.3); Eosinophils Percent Auto 2.1 % (0-4.4); Hematocrit 31.7 % (42.0-52.0); Hemoglobin 9.9 g/dL (14.0-18.0); Immature Granulocyte Absolute 0.03 K/mm3 (0.00-0.031); Immature Granulocyte Percent A 0.4 % (0-0.5); Immature Platelet Fraction Pct 8.3 % (0.9-11.2); Lymphocytes Absolute Auto 0.59 K/mm3 (0.9-3.2); Lymphocytes Percent Auto 7.6 % (18.3-44.2); Mean Corpuscular HGB Conc 31.2 g/dl (32-36); Mean Corpuscular Hemoglobin 29.1 pg (26-34); Mean Corpuscular Volume 93.2 fl (80-100); Mean Platelet Volume 11.6 fl (7.4-10.4); Monocytes Absolute Auto 0.6 K/mm3 (0.1-0.6); Monocytes Percent Auto 7.7 % (2.6-8.5); Neutrophils Absolute Auto 6.4 K/mm3 (1.3-6.7); Neutrophils Percent Auto 81.7 % (45.5-73.1); Platelet Count Result 92 k/mm3 (150-375); Red Cell Distribution Width 17.9 % (11.5-14.5); White Blood Count 7.8 K/mm3 (4.5-10.0)
[2021-06-15 08:25] LABS: Alanine Aminotransferase 26 U/L (4-50); Albumin Level 3.8 g/dL (3.5-5.1); Alkaline Phosphatase 100 U/L (38-126); Anion Gap 9 mmol/L (8-16); Aspartate Amino Transferase 55 U/L (17-59); Bilirubin Direct 0.3 mg/dL (0-0.3); Bilirubin,Total 2.7 mg/dL (0.2-1.3); Blood Urea Nitrogen 25 mg/dL (9-20); Calcium 8.4 mg/dL (8.4-10.2); Carbon Dioxide 28 mmol/L (22-30); Chloride 94 mmol/L (98-107); Estimated CRCL calculation 86 ml/min; Estimated Glomerular Filt Rate 57; Glucose 127 mg/dL (65-110); Lactate Dehydrogenase 863 U/L (313-618); Magnesium 2.1 mg/dL (1.6-2.3); Phosphorus 3.1 mg/dL (2.5-4.5); Potassium 3.5 mmol/L (3.4-5.0); Sodium 131 mmol/L (137-145)
[2021-06-15 08:26] LABS: Rheumatoid Factor < 8.6 IU/ML (<12)
[2021-06-15 08:31] LABS: Monoscreen Negative (Negative)
[2021-06-15 08:32] LABS: Negative Monotest Control Negative (Negative); Positive Monotest Control Positive (Positive)
[2021-06-15 08:39] LABS: Vancomycin Trough 21.9 ug/mL (10.0-20.0)
[2021-06-15] MEDS: ASPIRIN 81 MG ENTERIC TABLET PO (08:50)
[2021-06-15] MEDS: POTASSIUM CHLORIDE 20 MEQ TABLET.ER PO ×2 (08:50→18:30)
[2021-06-15] MEDS: MULTIVITAMINS THERAPEUTIC TAB (*BKC) 1 TABLET PO (08:50)
[2021-06-15] MEDS: CHOLECALCIFEROL 1,000 UNITS TABLET 2000 UNITS PO (08:50)
[2021-06-15] MEDS: FUROSEMIDE INJ 40 MG/4 ML VIAL 60 MG IV PUSH (08:51)
[2021-06-15] MEDS: ENOXAPARIN 40 MG/0.4 ML SYRINGE SUB-Q (08:51)
[2021-06-15] MEDS: METOPROLOL SUCCINATE EXT REL 50 MG TABCR PO (08:51)
[2021-06-15] MEDS: lisinopriL 5 MG TABLET PO (08:51)
[2021-06-15 09:04] LABS: Hepatitis B Surface Antigen Negative (Negative)
[2021-06-15 09:09] LABS: HIV 1/2 Ab P24 Ag Result Negative (Negative)
[2021-06-15 09:10] LABS: HAV RESULT Negative (Negative); Hepatitis B Core IgM Result Negative (Negative)
[2021-06-15 09:21] LABS: Hepatitis C Virus Antibody Negative (Negative)
--- NOTE | 2021-06-15 10:46 | PM.IMPN ---
Progress Note: A&P Assessment and Plan (1) Septicemia: Code(s): A41.9 - Sepsis, unspecified organism Status: Acute Assessment and Plan: Blood cultures x2 positive for Strept G. Source is felt more likely from cellulitis. Continue Rocephin. Stop Vancomycin vanc level was supratherapeutic. Repeat blood culture to confirm resolution if no resolution of blood culture will get ID jorgeal (2) Cellulitis of left leg: Code(s): L03.116 - Cellulitis of left lower limb Status: Acute Assessment and Plan: Patient with cellulitis of the left lower leg. LE dopplers negative for DVT. Continue IV Rocephin follow up repeat blood culture. (3) Acute respiratory failure: Code(s): J96.00 - Acute respiratory failure, unspecified whether with hypoxia or hypercapnia Status: Acute Assessment and Plan: Most likely multifactorial related to sepsis CHF cellulitis and pleural effusion and calcified pericarditis improved (4) Acute exacerbation of CHF (congestive heart failure): Qualifiers: Heart failure type: unspecified Qualified Code(s): I50.9 - Heart failure, unspecified Code(s): I50.9 - Heart failure, unspecified Status: Acute Assessment and Plan: BNP 4390. Chest x-ray and CT of the chest not showing significant pulmonary edema but he is massively edematous. Echo showing EF55-60%, Grade II diastolic dysfunction, RV hypokinesis,volume overload with moderate pulmonary HTN. Mitral ring well placed. Blood cultures positive related to the cellulitis. 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 Follow-up with cardiology as outpatient (7) Elevated troponin: Code(s): R77.8 - Other specified abnormalities of plasma proteins Status: Acute Assessment and Plan: Most likely NSTEMI type 2 secondary to demand ischemia secondary to sepsis and CHF exacerbation (8) Left lower lobe pneumonia: Code(s): J18.9 - Pneumonia, unspecified organism Status: Acute Assessment and Plan: I do not think patient has pneumonia patient currently on antibiotic for cellulitis of lower extremity (9) Lactic acidosis: Code(s): E87.2 - Acidosis Status: Acute Assessment and Plan: Lactic acid elevated on admission to 2.4 but normal on repeat. Most likely related to sepsis (10) CAD (coronary artery disease): Code(s): I25.10 - Atherosclerotic heart disease of [place] coronary artery without angina pectoris Status: Acute Assessment and Plan: Patient presented 03/25/17 with SOB and found to have inferior STEMI. He underwent LHC but unable to open a thrombosed RCA. Severe MR noted. He was sent to [facility] for CABG x2 (BANG to LAD and SVG to posterior descending). He did have postop AFib as well.He was lost to follow up since then. Has seen Dr. Spears in the past. Continue ASA, Lipitor. (11) Chronic kidney disease, stage 3: Code(s): N18.30 - Chronic kidney disease, stage 3 unspecified Status: Acute Assessment and Plan: Monitor renal function daily as patient is on IV Lasix (12) DVT prophylaxis: Code(s): Z29.9 - Encounter for prophylactic measures, unspecified Status: Acute Assessment and Plan: Lovenox Subjective Date/time seen: 06/15/21 10:46 Interval history: 56 years old male with past medical history of lung mass morbid obesity spleno
--- NOTE | 2021-06-15 14:38 | PM.PNCARD ---
Progress Note: A&P Assessment and Plan (1) Acute exacerbation of CHF (congestive heart failure): Qualifiers: Heart failure type: unspecified Qualified Code(s): I50.9 - Heart failure, unspecified Code(s): I50.9 - Heart failure, unspecified Status: Acute Assessment and Plan: Slowly improving with IV Lasix. Continue accurate input and output, daily weight. If urine output drops off discussed uptitration in dose or frequency or change to continuous IV Lasix infusion. Will observe today. Monitor renal function electrolytes very closely. (2) Elevated troponin: Code(s): R77.8 - Other specified abnormalities of plasma proteins Status: Acute Assessment and Plan: Type 2 infarction not acute coronary syndrome and/or plaque rupture. (3) CAD (coronary artery disease): Code(s): I25.10 - Atherosclerotic heart disease of [place] coronary artery without angina pectoris Status: Acute Assessment and Plan: Stable, asymptomatic. Continue medical therapy with aspirin, statin Toprol XL, lisinopril. (4) Cellulitis of left leg: Code(s): L03.116 - Cellulitis of left lower limb Status: Acute Assessment and Plan: Per primary service. IV antibiotics. (5) Septicemia: Code(s): A41.9 - Sepsis, unspecified organism Status: Acute Assessment and Plan: Positive blood cultures thought secondary to cellulitis. Continue clinical observation. Per primary service. If persistent positive blood cultures and or new significant murmur further evaluation may be warranted given history of mitral valve annuloplasty. (6) Status post mitral valve annuloplasty: Code(s): Z98.890 - Other specified postprocedural states Status: Acute Assessment and Plan: Stable. As above. Subjective Date/time seen: Date of service: 06/15/21 14:38 Follow-up for acute on chronic decompensated heart failure with preserved ejection fraction Patient feeling better. Still with significant edema but breathing slowly improving. He states he is urinating very well on IV Lasix. No chest pain or palpitations. No new issues overnight. Review of Systems Review of Systems: All systems reviewed & are unremarkable except as noted in HPI and below Constitutional: Constitutional: Reports as per HPI, Reports lethargy and Reports weakness Eyes: Eyes: Reports as per HPI and Reports no additional eye complaints ENT: Reports system reviewed and no additional complaints, except as documented and Reports as per HPI Cardiovascular: Cardiovascular: Reports as per HPI, Denies chest pain, Reports leg edema and Denies palpitations Respiratory: Respiratory: Reports as per HPI, Denies cough, Denies hemoptysis, Reports dyspnea and Reports dyspnea on exertion Gastrointestinal: Gastrointestinal: Reports as per HPI, Reports no additional gastrointestinal complaints and Reports bloating Genitourinary: Genitourinary: Reports as per HPI and Reports urinary frequency Musculoskeletal: Musculoskeletal: Reports no additional musculoskeletal complaints and Reports as per HPI Integumentary/Breasts: Skin/Breast: Reports system reviewed and no additional complaints, except as docu and Reports as per HPI Neurologic: Reports as per HPI and Reports weakness Psychiatric: Psychiatric: Reports as per HPI Endocrine: Endocrine: Reports no additional endocrine complaints and Reports as per HPI Hematologic/Lymphatic: Hematologic/Lymphatic: Reports no additional hematologic/lymphatic complaints and Reports as per HPI Allergic/Immunologic: Allergic/Immunologic: Reports no additional allergic/immunologic complaints and Reports as per HPI Exam Const: General: comfortable and no acute distress Other: Morbidly obese white male sleeping flat in bed when I entered the room to cm is mother was at his side. Upon awakening he is comfortable and is not in any distress. HENMT: Mouth: Yes moist mucous membrane
[2021-06-15] MEDS: FUROSEMIDE INJ 100 MG/10 ML VIAL 60 MG IV PUSH (18:30)
[2021-06-15] MEDS: ATORVASTATIN 40 MG TABLET PO (20:46)
[2021-06-15] MEDS: FAMOTIDINE 10 MG TABLET PO (20:46)
[2021-06-15] MEDS: FERROUS SULFATE 324 MG TABLET PO (20:46)
[2021-06-16] VITALS (14 sets, daily range): BP systolic 98–112; BP diastolic 59–73; PULSE 79–88; RESP 16–24; TEMP 36.2–37.2; O2SAT 92–99
[2021-06-16] MEDS: CHOLECALCIFEROL 1,000 UNITS TABLET 2000 UNITS PO (09:18)
[2021-06-16] MEDS: POTASSIUM CHLORIDE 20 MEQ TABLET.ER PO ×2 (09:18→16:23)
[2021-06-16] MEDS: ASPIRIN 81 MG ENTERIC TABLET PO (09:19)
[2021-06-16] MEDS: ENOXAPARIN 40 MG/0.4 ML SYRINGE SUB-Q (09:19)
[2021-06-16] MEDS: FUROSEMIDE INJ 100 MG/10 ML VIAL 60 MG IV PUSH (09:19)
[2021-06-16] MEDS: METOPROLOL SUCCINATE EXT REL 50 MG TABCR PO (09:20)
[2021-06-16] MEDS: lisinopriL 5 MG TABLET PO (09:20)
[2021-06-16] MEDS: MULTIVITAMINS THERAPEUTIC TAB (*BKC) 1 TABLET PO (09:21)
[2021-06-16 11:09] LABS: Anion Gap 12 mmol/L (8-16); Blood Urea Nitrogen 29 mg/dL (9-20); Calcium 8.3 mg/dL (8.4-10.2); Carbon Dioxide 23 mmol/L (22-30); Chloride 95 mmol/L (98-107); Estimated CRCL calculation 80 ml/min; Estimated Glomerular Filt Rate 52; Glucose 143 mg/dL (65-110); Magnesium 2.1 mg/dL (1.6-2.3); Potassium 3.7 mmol/L (3.4-5.0); Sodium 130 mmol/L (137-145)
--- NOTE | 2021-06-16 12:09 | PM.IMPN ---
Progress Note: A&P Assessment and Plan (1) Septicemia: Code(s): A41.9 - Sepsis, unspecified organism Status: Acute Assessment and Plan: Blood cultures x2 positive for Strept G. Source is felt more likely from cellulitis. Continue Rocephin. Stop Vancomycin vanc level was supratherapeutic. Repeat blood culture to confirm resolution if no resolution of blood culture will get ID eval pending final repeat culture (2) Cellulitis of left leg: Code(s): L03.116 - Cellulitis of left lower limb Status: Acute Assessment and Plan: Patient with cellulitis of the left lower leg. LE dopplers negative for DVT. Continue IV Rocephin follow up pending final repeat blood culture. (3) Acute respiratory failure: Code(s): J96.00 - Acute respiratory failure, unspecified whether with hypoxia or hypercapnia Status: Acute Assessment and Plan: Most likely multifactorial related to sepsis CHF cellulitis and pleural effusion and calcified pericarditis improved (4) Acute exacerbation of CHF (congestive heart failure): Qualifiers: Heart failure type: unspecified Qualified Code(s): I50.9 - Heart failure, unspecified Code(s): I50.9 - Heart failure, unspecified Status: Acute Assessment and Plan: BNP 4390. Chest x-ray and CT of the chest not showing significant pulmonary edema but he is massively edematous. Echo showing EF55-60%, Grade II diastolic dysfunction, RV hypokinesis,volume overload with moderate pulmonary HTN. Mitral ring well placed. Blood cultures positive related to the cellulitis. 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 Follow-up with cardiology as outpatient (7) Elevated troponin: Code(s): R77.8 - Other specified abnormalities of plasma proteins Status: Acute Assessment and Plan: Most likely NSTEMI type 2 secondary to demand ischemia secondary to sepsis and CHF exacerbation (8) Left lower lobe pneumonia: Code(s): J18.9 - Pneumonia, unspecified organism Status: Acute Assessment and Plan: I do not think patient has pneumonia patient currently on antibiotic for cellulitis of lower extremity (9) Lactic acidosis: Code(s): E87.2 - Acidosis Status: Acute Assessment and Plan: Lactic acid elevated on admission to 2.4 but normal on repeat. Most likely related to sepsis (10) CAD (coronary artery disease): Code(s): I25.10 - Atherosclerotic heart disease of [place] coronary artery without angina pectoris Status: Acute Assessment and Plan: Patient presented 03/25/17 with SOB and found to have inferior STEMI. He underwent LHC but unable to open a thrombosed RCA. Severe MR noted. He was sent to [facility] for CABG x2 (BANG to LAD and SVG to posterior descending). He did have postop AFib as well.He was lost to follow up since then. Has seen Dr. Spears in the past. Continue ASA, Lipitor. (11) Chronic kidney disease, stage 3: Code(s): N18.30 - Chronic kidney disease, stage 3 unspecified Status: Acute Assessment and Plan: Monitor renal function daily as patient is on IV Lasix (12) DVT prophylaxis: Code(s): Z29.9 - Encounter for prophylactic measures, unspecified Status: Acute Assessment and Plan: Lovenox (13) Hyponatremia: Code(s): E87.1 - Hypo-osmola
--- NOTE | 2021-06-16 13:23 | PM.PNCARD ---
Progress Note: A&P Assessment and Plan (1) Acute exacerbation of CHF (congestive heart failure): Qualifiers: Heart failure type: unspecified Qualified Code(s): I50.9 - Heart failure, unspecified Code(s): I50.9 - Heart failure, unspecified Status: Acute Assessment and Plan: Very slow improvement now waning. Urine output falling off renal function slightly worse. Hyponatremic possibly due to diuretics. Continue accurate input and output, daily weight as these are not being done properly. Discussed change to Bumex 2 mg IV twice daily. He wants to avoid a Arndt catheter although I feel Lasix infusion may be the most reasonable would like to try and avoid. Will start Bumex this afternoon. Monitor renal function electrolytes very closely. Follow daily labs. Discussed at length with the patient. He verbalized understanding and agreed with plan of care. Balance with diuresis and renal function. Patient remains significantly volume overloaded. (2) Elevated troponin: Code(s): R77.8 - Other specified abnormalities of plasma proteins Status: Acute Assessment and Plan: Type 2 infarction not acute coronary syndrome and/or plaque rupture. (3) CAD (coronary artery disease): Code(s): I25.10 - Atherosclerotic heart disease of [place] coronary artery without angina pectoris Status: Acute Assessment and Plan: Stable, asymptomatic. Continue medical therapy with aspirin, statin Toprol XL, lisinopril. (4) Cellulitis of left leg: Code(s): L03.116 - Cellulitis of left lower limb Status: Acute Assessment and Plan: Per primary service. IV antibiotics. DVT prophylaxis. (5) Septicemia: Code(s): A41.9 - Sepsis, unspecified organism Status: Acute Assessment and Plan: Positive blood cultures thought secondary to cellulitis. Continue clinical observation. Per primary service. If persistent positive blood cultures and or new significant murmur further evaluation may be warranted given history of mitral valve annuloplasty. (6) Status post mitral valve annuloplasty: Code(s): Z98.890 - Other specified postprocedural states Status: Acute Assessment and Plan: Stable. As above. Subjective Date/time seen: Date of service: 06/16/21 13:23 Follow-up for CHF Patient notes his stomach is slightly less tense. Breathing not improved. Minimal shortness of breath. Feels tired. Denies chest pain or palpitations. No other issues overnight. He admits his urine output has dropped off as of yesterday afternoon and evening. Urine looking darker as well. Review of Systems Review of Systems: All systems reviewed & are unremarkable except as noted in HPI and below Constitutional: Constitutional: Reports as per HPI, Reports lethargy and Reports weakness Eyes: Eyes: Reports as per HPI and Reports no additional eye complaints ENT: Reports system reviewed and no additional complaints, except as documented and Reports as per HPI Cardiovascular: Cardiovascular: Reports as per HPI, Denies chest pain, Reports leg edema, Denies palpitations, Reports dyspnea and Reports dyspnea on exertion Respiratory: Respiratory: Reports as per HPI, Denies cough, Denies hemoptysis, Reports dyspnea and Reports dyspnea on exertion Gastrointestinal: Gastrointestinal: Reports as per HPI, Reports no additional gastrointestinal complaints and Reports bloating Genitourinary: Genitourinary: Reports as per HPI and Reports urinary frequency Musculoskeletal: Musculoskeletal: Reports no additional musculoskeletal complaints and Reports as per HPI Integumentary/Breasts: Skin/Breast: Reports system reviewed and no additional complaints, except as docu and Reports as per HPI Neurologic: Reports as per HPI and Reports weakness Psychiatric: Psychiatric: Reports as per HPI Endocrine: Endocrine: Reports no additional endocrine complaints, Reports as per HPI and Denies palp
[2021-06-16] MEDS: BUMETANIDE INJ 1 MG/4 ML VIAL 2 MG IV PUSH (16:22)
[2021-06-16] MEDS: FAMOTIDINE 10 MG TABLET PO (20:41)
[2021-06-16] MEDS: ATORVASTATIN 40 MG TABLET PO (20:41)
[2021-06-16] MEDS: FERROUS SULFATE 324 MG TABLET PO (20:41)
[2021-06-17] VITALS (18 sets, daily range): BP systolic 102–116; BP diastolic 58–75; PULSE 77–99; RESP 18–24; TEMP 36.3–36.8; O2SAT 93–99
[2021-06-17] MEDS: CHOLECALCIFEROL 1,000 UNITS TABLET 2000 UNITS PO (09:14)
[2021-06-17] MEDS: lisinopriL 5 MG TABLET PO (09:15)
[2021-06-17] MEDS: ASPIRIN 81 MG ENTERIC TABLET PO (09:15)
[2021-06-17] MEDS: METOPROLOL SUCCINATE EXT REL 50 MG TABCR PO (09:15)
[2021-06-17] MEDS: MULTIVITAMINS THERAPEUTIC TAB (*BKC) 1 TABLET PO (09:15)
[2021-06-17] MEDS: BUMETANIDE INJ 1 MG/4 ML VIAL 2 MG IV PUSH ×2 (09:16→18:19)
[2021-06-17] MEDS: ENOXAPARIN 40 MG/0.4 ML SYRINGE SUB-Q (09:16)
[2021-06-17] MEDS: POTASSIUM CHLORIDE 20 MEQ TABLET.ER PO ×2 (09:16→17:15)
--- NOTE | 2021-06-17 11:20 | PM.PNCARD ---
Progress Note: A&P Assessment and Plan (1) Acute exacerbation of CHF (congestive heart failure): Qualifiers: Heart failure type: unspecified Qualified Code(s): I50.9 - Heart failure, unspecified Code(s): I50.9 - Heart failure, unspecified Status: Acute Assessment and Plan: Very slow improvement now waning. Urine output has decreased despite change from furosemide to Bumex yesterday. Hyponatremic possibly due to diuretics. He also tells me he's drinking 2L water daily. Will start free water restriction, fluid restriction. Monitor renal function electrolytes very closely with daily BMP. Renal function stable today. He remains significantly volume overloaded - may require furosemide or bumex gtt but want to try to avoid this. Will increase metolazone to 5mg BID to be given 30 minutes prior to Bumex dose. If no improvement in urine output tomorrow will probably have to initiate diuretic gtt. Compressing stockings if able to tolerate with L leg cellulitis. Accurate I's & O's Daily weights 1500cc fluid restriction (2) Elevated troponin: Code(s): R77.8 - Other specified abnormalities of plasma proteins Status: Acute Assessment and Plan: Type 2 infarction not acute coronary syndrome and/or plaque rupture. (3) CAD (coronary artery disease): Code(s): I25.10 - Atherosclerotic heart disease of [place] coronary artery without angina pectoris Status: Acute Assessment and Plan: Stable, asymptomatic. Continue medical therapy with aspirin, statin Toprol XL, lisinopril. (4) Cellulitis of left leg: Code(s): L03.116 - Cellulitis of left lower limb Status: Acute Assessment and Plan: Per primary service. IV antibiotics. DVT prophylaxis. (5) Septicemia: Code(s): A41.9 - Sepsis, unspecified organism Status: Acute Assessment and Plan: Positive blood cultures thought secondary to cellulitis. Continue clinical observation. Per primary service. If persistent positive blood cultures and or new significant murmur further evaluation may be warranted given history of mitral valve annuloplasty. (6) Status post mitral valve annuloplasty: Code(s): Z98.890 - Other specified postprocedural states Status: Acute Assessment and Plan: Stable. As above. Subjective Date/time seen: 06/17/21 11:20 Cardiology follow up for diastolic HF Date of service 06/17/21: He feels okay today. He remains significantly volume overloaded. He tells me that his urine output has decreased over the past day and half for so despite changing him to Bumex. No chest pain, palpitations, shortness of breath. Review of Systems Review of Systems: All systems reviewed & are unremarkable except as noted in HPI and below Constitutional: Constitutional: Reports as per HPI, Reports lethargy and Reports weakness Eyes: Eyes: Reports as per HPI and Reports no additional eye complaints ENT: Reports system reviewed and no additional complaints, except as documented and Reports as per HPI Cardiovascular: Cardiovascular: Reports as per HPI, Denies chest pain, Reports leg edema, Denies palpitations, Reports dyspnea and Reports dyspnea on exertion Respiratory: Respiratory: Reports as per HPI, Denies cough, Denies hemoptysis, Reports dyspnea and Reports dyspnea on exertion Gastrointestinal: Gastrointestinal: Reports as per HPI, Reports no additional gastrointestinal complaints and Reports bloating Genitourinary: Genitourinary: Reports as per HPI and Reports urinary frequency Musculoskeletal: Musculoskeletal: Reports no additional musculoskeletal complaints and Reports as per HPI Integumentary/Breasts: Skin/Breast: Reports system reviewed and no additional complaints, except as docu and Reports as per HPI Neurologic: Reports as per HPI and Reports weakness Psychiatric: Psychiatric: Reports as per HPI Endocrine: Endocrine: Reports no additional endo
[2021-06-17 11:48] LABS: Hematocrit 32.9 % (42.0-52.0); Hemoglobin 10.7 g/dL (14.0-18.0); Immature Platelet Fraction Pct 5.2 % (0.9-11.2); Mean Corpuscular HGB Conc 32.5 g/dl (32-36); Mean Corpuscular Hemoglobin 30.3 pg (26-34); Mean Corpuscular Volume 93.2 fl (80-100); Mean Platelet Volume 11.2 fl (7.4-10.4); Platelet Count Result 146 k/mm3 (150-375); Red Blood Count 3.53 M/mm3 (4.6-6.20); Red Cell Distribution Width 17.6 % (11.5-14.5)
[2021-06-17 11:58] LABS: Alanine Aminotransferase 29 U/L (4-50); Albumin Level 3.8 g/dL (3.5-5.1); Alkaline Phosphatase 158 U/L (38-126); Anion Gap 9 mmol/L (8-16); Aspartate Amino Transferase 45 U/L (17-59); Bilirubin,Total 2.2 mg/dL (0.2-1.3); Blood Urea Nitrogen 29 mg/dL (9-20); Calcium 8.5 mg/dL (8.4-10.2); Carbon Dioxide 23 mmol/L (22-30); Chloride 95 mmol/L (98-107); Estimated CRCL calculation 80 ml/min; Estimated Glomerular Filt Rate 52; Glucose 118 mg/dL (65-110); Potassium 3.8 mmol/L (3.4-5.0); Sodium 127 mmol/L (137-145)
--- NOTE | 2021-06-17 13:10 | PM.IMPN ---
Progress Note: A&P Assessment and Plan (1) Septicemia: Code(s): A41.9 - Sepsis, unspecified organism Status: Acute Assessment and Plan: Blood cultures x2 positive for Strept G sensitive to Rocephin. Source is felt more likely from cellulitis but can not exclude PNA given the CT scan findings of small left pleural effusion with pleural thickening and adjacent rounded atelectasis in LLL. Continue Rocephin. Repeat BCx NGTD. (2) Cellulitis of left leg: Code(s): L03.116 - Cellulitis of left lower limb Status: Acute Assessment and Plan: Patient with cellulitis of the left lower leg. LE dopplers negative for DVT. Clinically resolving. Continue IV abx. (3) Acute respiratory failure: Code(s): J96.00 - Acute respiratory failure, unspecified whether with hypoxia or hypercapnia Status: Acute Assessment and Plan: Patient presents with acute respiratory failure. CT without contrast showing mostly left side pleural effusion with airspace disease. [place] related to CHF and less likely PNA. Sepsis related to cellulitis. Resolved and on room air now. (4) Acute exacerbation of CHF (congestive heart failure): Qualifiers: Heart failure type: unspecified Qualified Code(s): I50.9 - Heart failure, unspecified Code(s): I50.9 - Heart failure, unspecified Status: Acute Assessment and Plan: BNP 4390. Chest x-ray and CT of the chest not showing significant pulmonary edema but he is massively edematous. Echo showing EF55-60%, Grade II diastolic dysfunction, RV hypokinesis,volume overload with moderate pulmonary HTN. Mitral ring well placed. Abd US showing splenomegaly but no evidence of cirrhosis or ascites. Diuresis with poor results. Continue Bumex IV but consider advancing dose or metolazone. CHF teaching. Continue daily weights. (5) Splenomegaly: Code(s): R16.1 - Splenomegaly, not elsewhere classified Status: Acute Assessment and Plan: Abd US showing splenomegaly but no evidence of cirrhosis or ascites. Plt count low felt relate dto the sepsis more so then chronic. Plt count better today. HIV, Hepatitis panel, RF negative. Etiology could be CHF and/or bacterial septicemia. Consider also lymphoma SLE or sarcoid. 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 Echo showing normal pericardium and no effusion. Constrictive pericarditis felt less likely. Echo 04/25/17 showing moderate pericardial effusion and evidence of post-pericardectomy. Suspect CT scan findings related to previous surgery. (7) Elevated troponin: Code(s): R77.8 - Other specified abnormalities of plasma proteins Status: Acute Assessment and Plan: Troponin elevated to 1.21. EKG showing no acute changes and no chest pain. Suspect nonischemic myocardial injury related to the fluid overload and sepsis. (8) Left lower lobe pneumonia: Code(s): J18.9 - Pneumonia, unspecified organism Status: Acute Assessment and Plan: Chest x-ray showing airspace opacities left mid lower lung zones. CT the chest without contrast showing small left pleural effusion with pleural thickening with adjacent rounded atelectasis in LLL. Has a history of a left lung mass with subsequent resolution. Doubt PNA; he was started Rocephin which will continue for the cellulitis/bacteremia. Blood cultures positive as mentioned above. (9) Lactic acidosis: Code(s): E87.2 - Acidosis Status: Acute Assessment and Plan: Lactic acid elevated on admission to 2.4 but normal on repeat. Related to above. (10) CAD (coronary artery disease): Code(s): I25.10 - Atherosclerotic heart disease of [place] coronary artery without angina pectoris Status: Acute Assessment and Plan:
[2021-06-17] MEDS: metOLazone 2.5 MG TABLET PO (15:00)
[2021-06-17] MEDS: metOLazone 5 MG TABLET PO (17:16)
[2021-06-17] MEDS: FAMOTIDINE 10 MG TABLET PO (19:57)
[2021-06-17] MEDS: ATORVASTATIN 40 MG TABLET PO (19:57)
[2021-06-17] MEDS: FERROUS SULFATE 324 MG TABLET PO (19:57)
[2021-06-18] VITALS (13 sets, daily range): BP systolic 105–120; BP diastolic 59–67; PULSE 79–90; RESP 16–22; TEMP 36.2–38.1; O2SAT 96–99
[2021-06-18 05:41] LABS: Basophils Absolute Auto 0.1 K/mm3 (0.0-0.1); Basophils Percent Auto 0.9 % (0.2-1.2); Eosinophils Absolute Auto 0.3 K/mm3 (0-0.3); Eosinophils Percent Auto 3.9 % (0-4.4); Hematocrit 32.3 % (42.0-52.0); Hemoglobin 10.2 g/dL (14.0-18.0); Immature Granulocyte Absolute 0.09 K/mm3 (0.00-0.031); Immature Granulocyte Percent A 1.1 % (0-0.5); Lymphocytes Absolute Auto 0.79 K/mm3 (0.9-3.2); Lymphocytes Percent Auto 9.9 % (18.3-44.2); Mean Corpuscular HGB Conc 31.6 g/dl (32-36); Mean Corpuscular Hemoglobin 29.3 pg (26-34); Mean Corpuscular Volume 92.8 fl (80-100); Mean Platelet Volume 10.6 fl (7.4-10.4); Monocytes Absolute Auto 0.9 K/mm3 (0.1-0.6); Monocytes Percent Auto 11.7 % (2.6-8.5); Neutrophils Absolute Auto 5.8 K/mm3 (1.3-6.7); Neutrophils Percent Auto 72.5 % (45.5-73.1); Platelet Count Result 147 k/mm3 (150-375); Red Blood Count 3.48 M/mm3 (4.6-6.20); Red Cell Distribution Width 17.9 % (11.5-14.5)
[2021-06-18 05:43] LABS: Albumin Level 3.8 g/dL (3.5-5.1); Anion Gap 9 mmol/L (8-16); Blood Urea Nitrogen 28 mg/dL (9-20); Calcium 8.9 mg/dL (8.4-10.2); Carbon Dioxide 29 mmol/L (22-30); Chloride 93 mmol/L (98-107); Estimated CRCL calculation 80 ml/min; Estimated Glomerular Filt Rate 52; Glucose 98 mg/dL (65-110); Phosphorus 3.5 mg/dL (2.5-4.5); Potassium 3.3 mmol/L (3.4-5.0); Sodium 131 mmol/L (137-145)
[2021-06-18] MEDS: ASPIRIN 81 MG ENTERIC TABLET PO (08:18)
[2021-06-18] MEDS: POTASSIUM CHLORIDE 20 MEQ TABLET.ER PO ×2 (08:18→17:11)
[2021-06-18] MEDS: BUMETANIDE INJ 1 MG/4 ML VIAL 2 MG IV PUSH ×2 (08:18→17:10)
[2021-06-18] MEDS: ENOXAPARIN 40 MG/0.4 ML SYRINGE SUB-Q (08:19)
[2021-06-18] MEDS: CHOLECALCIFEROL 1,000 UNITS TABLET 2000 UNITS PO (08:19)
[2021-06-18] MEDS: METOPROLOL SUCCINATE EXT REL 50 MG TABCR PO (08:19)
[2021-06-18] MEDS: MULTIVITAMINS THERAPEUTIC TAB (*BKC) 1 TABLET PO (08:19)
[2021-06-18] MEDS: metOLazone 5 MG TABLET PO ×2 (08:19→17:11)
[2021-06-18] MEDS: lisinopriL 5 MG TABLET PO (08:19)
--- NOTE | 2021-06-18 10:30 | PM.PNCARD ---
Progress Note: A&P Assessment and Plan (1) Acute exacerbation of CHF (congestive heart failure): Qualifiers: Heart failure type: unspecified Qualified Code(s): I50.9 - Heart failure, unspecified <JOSH Pereira - Last Filed: 06/18/21 10:44> Code(s): I50.9 - Heart failure, unspecified <JOSH Pereira - Last Filed: 06/18/21 10:44> Status: Acute <JOSH Pereira - Last Filed: 06/18/21 10:44> Assessment and Plan: Very slow improvement in volume status but he is looking better today, making more urine. He has slightly less edema on his upper thighs Continue 1.5L fluid restriction Monitor renal function electrolytes very closely with daily BMP. Renal function stable today. He remains significantly volume overloaded, but making better urine with Bumex 2mg IV b.i.d and increase in metolazone. He is 3.7L negative currently since MN last night. Slow progress. Compressing stockings if able to tolerate with L leg cellulitis. Accurate I's & O's Daily weights <JOSH Pereira - Last Filed: 06/18/21 10:44> (2) Elevated troponin: Code(s): R77.8 - Other specified abnormalities of plasma proteins <JOSH Pereira - Last Filed: 06/18/21 10:44> Status: Acute <JOSH Pereira - Last Filed: 06/18/21 10:44> Assessment and Plan: Type 2 infarction not acute coronary syndrome and/or plaque rupture. <JOSH Pereira - Last Filed: 06/18/21 10:44> (3) CAD (coronary artery disease): Code(s): I25.10 - Atherosclerotic heart disease of [place] coronary artery without angina pectoris <JOSH Pereira - Last Filed: 06/18/21 10:44> Status: Acute <JOSH Pereira - Last Filed: 06/18/21 10:44> Assessment and Plan: Stable, asymptomatic. Continue medical therapy with aspirin, statin Toprol XL, lisinopril. <JOSH Pereira - Last Filed: 06/18/21 10:44> (4) Cellulitis of left leg: Code(s): L03.116 - Cellulitis of left lower limb <JOSH Pereira - Last Filed: 06/18/21 10:44> Status: Acute <JOSH Pereira - Last Filed: 06/18/21 10:44> Assessment and Plan: Per primary service. IV antibiotics. DVT prophylaxis. <JOSH Pereira - Last Filed: 06/18/21 10:44> (5) Septicemia: Code(s): A41.9 - Sepsis, unspecified organism <JOSH Pereira - Last Filed: 06/18/21 10:44> Status: Acute <JOSH Pereira - Last Filed: 06/18/21 10:44> Assessment and Plan: Positive blood cultures thought secondary to cellulitis. Continue clinical observation. Per primary service. If persistent positive blood cultures and or new significant murmur further evaluation may be warranted given history of mitral valve annuloplasty. <JOSH Pereira - Last Filed: 06/18/21 10:44> (6) Status post mitral valve annuloplasty: Code(s): Z98.890 - Other specified postprocedural states <JOSH Pereira - Last Filed: 06/18/21 10:44> Status: Acute <JOSH Pereira - Last Filed: 06/18/21 10:44> Assessment and Plan: Stable. As above. <JOSH Pereira - Last Filed: 06/18/21 10:44> (7) Hyponatremia: Code(s): E87.1 - Hypo-osmolality and hyponatremia <JOSH Pereira - Last Filed: 06/18/21 10:44> Status: Acute <JOSH Pereira - Last Filed: 06/18/21 10:44> Assessment and Plan: Improving with fluid restriction. <JOSH Pereira - Last Filed: 06/18/21 10:44> Additional Plan I personally saw and evaluated the patient. I reviewed Mela Blum's note and agree with findings and plan of care as documented in the note. Patient is currently receiving diuresis for significant volume overload. Patient was advised to keep his legs elevated through the day as much as possible. <Shiraz Hung MD - Last Filed:
--- NOTE | 2021-06-18 13:15 | PM.IMPN ---
Progress Note: A&P Assessment and Plan (1) Septicemia: Code(s): A41.9 - Sepsis, unspecified organism Status: Acute Assessment and Plan: Blood cultures x2 positive for Strept G sensitive to Rocephin. Source is felt more likely from cellulitis but can not exclude PNA given the CT scan findings of small left pleural effusion with pleural thickening and adjacent rounded atelectasis in LLL. Repeat BCx NGTD. Increase Rocephin 2gm IV Q24h. (2) Cellulitis of left leg: Code(s): L03.116 - Cellulitis of left lower limb Status: Acute Assessment and Plan: Patient with cellulitis of the left lower leg. LE dopplers negative for DVT. 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 Symptomatically worse today but not involving the knees. Possibly related to being more ambulatory. WBC remains normal, no fevers. Continue IV abx. Encouraged him to keep this elevated. (3) Acute respiratory failure: Code(s): J96.00 - Acute respiratory failure, unspecified whether with hypoxia or hypercapnia Status: Acute Assessment and Plan: Patient presents with acute respiratory failure. CT without contrast showing small left pleural effusion with pleural thickening with adjacent airspace disease felt to be atelectasis. [place] related to CHF and less likely PNA. Sepsis related to cellulitis. Resolved and on room air now. Follow (4) Acute exacerbation of CHF (congestive heart failure): Qualifiers: Heart failure type: unspecified Qualified Code(s): I50.9 - Heart failure, unspecified Code(s): I50.9 - Heart failure, unspecified Status: Acute Assessment and Plan: BNP 4390. Chest x-ray and CT of the chest not showing significant pulmonary edema and he is massively edematous. Echo showing EF55-60%, Grade II diastolic dysfunction, RV hypokinesis,volume overload with moderate pulmonary HTN. Mitral ring well placed. Abd US showing splenomegaly but no evidence of cirrhosis or ascites. Diuresis with poor results so Metolazone added. metolazone advanced with improved UOP. Continue Bumex IV and oral metolazone. Continue daily weights. (5) Splenomegaly: Code(s): R16.1 - Splenomegaly, not elsewhere classified Status: Acute Assessment and Plan: Abd US showing splenomegaly but no evidence of cirrhosis or ascites. Plt count low and stable. HIV, Hepatitis panel and RF negative. Etiology could be CHF and/or bacterial septicemia. Consider also lymphoma, SLE or sarcoid. 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 Echo showing normal pericardium and no effusion. Constrictive pericarditis felt less likely. Echo 04/25/17 showing moderate pericardial effusion and evidence of post-pericardectomy. Suspect CT scan findings related to previous surgery. (7) Elevated troponin: Code(s): R77.8 - Other specified abnormalities of plasma proteins Status: Acute Assessment and Plan: Troponin elevated to 1.21. EKG showing no acute changes and no chest pain. Suspect nonischemic myocardial injury related to the fluid overload and sepsis. (8) Left lower lobe pneumonia: Code(s): J18.9 - Pneumonia, unspecified organism Status: Acute Assessment and Plan: Chest x-ray showing airspace opacities left mid lower lung zones. CT the chest without contrast showing small left pleural effusion with pleural thickening with adjacent rounded atelectasis in LLL. Has a history of a left lung mass with subsequent resolution. Doubt PNA; he was started Rocephin which will continue for the cellulitis/bacteremia. Blood cultures positive as mentioned above. (9) Lactic acidosis: Code(s): E87.2 - Acidosis Status: Acute Assessment and Plan: L
[2021-06-18] MEDS: POTASSIUM CHLORIDE 20 MEQ TABLET 40 MEQ PO (13:57)
--- NOTE | 2021-06-18 18:04 | PC.NURSE ---
This patient, Donta Copeland, was transferred to [[phone] ] on 06/18/21 at 1750. Personal belongings sent with patient. Report given to [BRITTANY Jeff @ [phone] ]. Appropriate documentation sent with patient.
[2021-06-18 21:57] LABS: Anti Nuclear Antibody Titer 1:40 (Negative)
[2021-06-18] MEDS: FERROUS SULFATE 324 MG TABLET PO (23:14)
[2021-06-18] MEDS: FAMOTIDINE 10 MG TABLET PO (23:14)
[2021-06-18] MEDS: ATORVASTATIN 40 MG TABLET PO (23:14)
[2021-06-18] MEDS: cefTRIAXone 2 GM in SODIUM CHLORIDE 0.9% IV 100 ML 200 ML IVPB (23:48)
[2021-06-19 00:22] VITALS: O2SAT 97
[2021-06-19 05:30] VITALS: BP 110/62; PULSE 92; RESP 20; TEMP 36.8; O2SAT 94
[2021-06-19 08:00] LABS: Hemoglobin 9.7 g/dL (14.0-18.0); Mean Corpuscular HGB Conc 32.3 g/dl (32-36); Mean Corpuscular Hemoglobin 29.1 pg (26-34); Mean Corpuscular Volume 90.1 fl (80-100); Mean Platelet Volume 10.7 fl (7.4-10.4); Platelet Count Result 165 k/mm3 (150-375); Red Blood Count 3.33 M/mm3 (4.6-6.20); Red Cell Distribution Width 18.1 % (11.5-14.5); White Blood Count 8.2 K/mm3 (4.5-10.0)
[2021-06-19 08:11] VITALS: PULSE 80
[2021-06-19] MEDS: MULTIVITAMINS THERAPEUTIC TAB (*BKC) 1 TABLET PO (08:11)
[2021-06-19] MEDS: metOLazone 5 MG TABLET PO ×2 (08:11→16:11)
[2021-06-19] MEDS: CHOLECALCIFEROL 1,000 UNITS TABLET 2000 UNITS PO (08:11)
[2021-06-19] MEDS: ASPIRIN 81 MG ENTERIC TABLET PO (08:11)
[2021-06-19] MEDS: METOPROLOL SUCCINATE EXT REL 50 MG TABCR PO (08:11)
[2021-06-19] MEDS: lisinopriL 5 MG TABLET PO (08:11)
[2021-06-19] MEDS: POTASSIUM CHLORIDE 20 MEQ TABLET.ER PO ×2 (08:11→16:10)
[2021-06-19] MEDS: BUMETANIDE INJ 1 MG/4 ML VIAL 2 MG IV PUSH ×2 (08:12→16:11)
[2021-06-19] MEDS: ENOXAPARIN 40 MG/0.4 ML SYRINGE SUB-Q (08:12)
[2021-06-19 08:13] LABS: Anion Gap 11 mmol/L (8-16); Blood Urea Nitrogen 27 mg/dL (9-20); Calcium 9.3 mg/dL (8.4-10.2); Carbon Dioxide 30 mmol/L (22-30); Chloride 92 mmol/L (98-107); Estimated CRCL calculation 78 ml/min; Estimated Glomerular Filt Rate 52; Glucose 96 mg/dL (65-110); Magnesium 1.8 mg/dL (1.6-2.3); Potassium 3.2 mmol/L (3.4-5.0); Sodium 133 mmol/L (137-145)
--- NOTE | 2021-06-19 09:46 | PM.PNCARD ---
Progress Note: A&P Assessment and Plan (1) Acute exacerbation of CHF (congestive heart failure): Qualifiers: Heart failure type: unspecified Qualified Code(s): I50.9 - Heart failure, unspecified Code(s): I50.9 - Heart failure, unspecified Status: Acute Assessment and Plan: Very slow improvement in volume status but he is looking better today, making more urine. He has slightly less edema on his upper thighs Continue 1.5L fluid restriction Monitor renal function electrolytes very closely with daily BMP. Renal function stable today. He remains significantly volume overloaded, but making better urine. Continue Bumex and metolazone as is today. Likely will start reducing tomorrow. His potassium levels are low and will supplement with KCL 40 mEq p.o. x1 Compressing stockings if able to tolerate with L leg cellulitis. Accurate I's & O's Daily weights (2) Elevated troponin: Code(s): R77.8 - Other specified abnormalities of plasma proteins Status: Acute Assessment and Plan: Type 2 infarction not acute coronary syndrome and/or plaque rupture. (3) CAD (coronary artery disease): Code(s): I25.10 - Atherosclerotic heart disease of [place] coronary artery without angina pectoris Status: Acute Assessment and Plan: Stable, asymptomatic. Continue medical therapy with aspirin, statin Toprol XL, lisinopril. (4) Cellulitis of left leg: Code(s): L03.116 - Cellulitis of left lower limb Status: Acute Assessment and Plan: Per primary service. IV antibiotics. DVT prophylaxis. (5) Septicemia: Code(s): A41.9 - Sepsis, unspecified organism Status: Acute Assessment and Plan: Positive blood cultures thought secondary to cellulitis. Continue clinical observation. Per primary service. If persistent positive blood cultures and or new significant murmur further evaluation may be warranted given history of mitral valve annuloplasty. (6) Status post mitral valve annuloplasty: Code(s): Z98.890 - Other specified postprocedural states Status: Acute Assessment and Plan: Stable. As above. (7) Hyponatremia: Code(s): E87.1 - Hypo-osmolality and hyponatremia Status: Acute Assessment and Plan: Improving with fluid restriction. Subjective Date/time seen: 06/19/21 09:46 Interval history: 56yo male with CAD s/p CABG here for SOB and found to be fluid overloaded. Date of service 06/19/2021: His main complaint is fluid restriction. He denies any chest pain, shortness of breath. Swelling continues to improve. Review of Systems Review of Systems: All systems reviewed & are unremarkable except as noted in HPI and below Constitutional: Constitutional: Reports as per HPI, Reports lethargy and Reports weakness Eyes: Eyes: Reports as per HPI and Reports no additional eye complaints ENT: Reports system reviewed and no additional complaints, except as documented and Reports as per HPI Cardiovascular: Cardiovascular: Reports as per HPI, Denies chest pain, Reports leg edema, Denies palpitations, Reports dyspnea and Reports dyspnea on exertion Respiratory: Respiratory: Reports as per HPI, Denies cough, Denies hemoptysis, Reports dyspnea and Reports dyspnea on exertion Gastrointestinal: Gastrointestinal: Reports as per HPI, Reports no additional gastrointestinal complaints and Reports bloating Genitourinary: Genitourinary: Reports as per HPI and Reports urinary frequency Musculoskeletal: Musculoskeletal: Reports no additional musculoskeletal complaints and Reports as per HPI Integumentary/Breasts: Skin/Breast: Reports system reviewed and no additional complaints, except as docu and Reports as per HPI Neurologic: Reports as per HPI and Reports weakness Psychiatric: Psychiatric: Reports as per HPI Endocrine: Endocrine: Reports no additional endocrine complaints, Reports as per HPI and Denies palpitations He
[2021-06-19 13:08] VITALS: BP 122/58; PULSE 88; RESP 14; TEMP 36.6; O2SAT 94
[2021-06-19] MEDS: POTASSIUM CHLORIDE 20 MEQ TABLET 40 MEQ PO (14:20)
--- NOTE | 2021-06-19 15:05 | PM.IMPN ---
Progress Note: A&P Assessment and Plan (1) Septicemia: Code(s): A41.9 - Sepsis, unspecified organism Status: Acute Assessment and Plan: Blood cultures x2 positive for Strept G sensitive to Rocephin. Source is felt more likely from cellulitis but can not exclude PNA given the CT scan findings of small left pleural effusion with pleural thickening and adjacent rounded atelectasis in LLL. Repeat BCx NGTD. Continue Rocephin 2gm IV Q24h. (2) Cellulitis of left leg: Code(s): L03.116 - Cellulitis of left lower limb Status: Acute Assessment and Plan: Patient with cellulitis of the left lower leg. LE dopplers negative for DVT. 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 Symptomatically worse today with very tender to touch left lower justin area. No knee pain. WBC remains normal but temp was 100.5 overnight. Continue IV abx. Encouraged him to keep the leg elevated. Check CT leg (doubt he could tolerate an US) (3) Acute respiratory failure: Code(s): J96.00 - Acute respiratory failure, unspecified whether with hypoxia or hypercapnia Status: Acute Assessment and Plan: Patient presents with acute respiratory failure. CT without contrast showing small left pleural effusion with pleural thickening with adjacent airspace disease felt to be atelectasis. [place] respiratory failure related to CHF and less likely PNA. Sepsis related to cellulitis. Resolved and on room air now. Follow (4) Acute exacerbation of CHF (congestive heart failure): Qualifiers: Heart failure type: unspecified Qualified Code(s): I50.9 - Heart failure, unspecified Code(s): I50.9 - Heart failure, unspecified Status: Acute Assessment and Plan: BNP 4390. Chest x-ray and CT of the chest not showing significant pulmonary edema and he is massively edematous. Echo showing EF55-60%, Grade II diastolic dysfunction, RV hypokinesis, volume overload with moderate pulmonary HTN. Mitral ring well placed. Abd US showing splenomegaly but no evidence of cirrhosis or ascites. [place] patient has right sided and diastolic CHF. Diuresis with poor results so Metolazone added. Metolazone advanced with improved UOP. Cumulative fluid balance -9.3L. Continue Bumex IV and oral metolazone. Continue daily weights. (5) Splenomegaly: Code(s): R16.1 - Splenomegaly, not elsewhere classified Status: Acute Assessment and Plan: Abd US showing splenomegaly but no evidence of cirrhosis or ascites. Plt count was low but now normal. HIV, Hepatitis panel and RF negative. Etiology could be CHF and/or bacterial septicemia. Consider also lymphoma, SLE or sarcoid. Further results pending. 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 CT chest on admission showing cardiomegaly with pericardial calcifications. Echo here showing normal pericardium and no effusion. Constrictive pericarditis felt less likely. Suspect CT scan findings related to previous surgery. (7) Elevated troponin: Code(s): R77.8 - Other specified abnormalities of plasma proteins Status: Acute Assessment and Plan: Troponin elevated to 1.21. EKG showing no acute changes and no chest pain. Suspect nonischemic myocardial injury related to the fluid overload and sepsis. (8) Left lower lobe pneumonia: Code(s): J18.9 - Pneumonia, unspecified organism Status: Acute Assessment and Plan: Chest x-ray showing airspace opacities left mid lower lung zones. CT the chest without contrast showing small left pleural effusion with pleural thickening with adjacent rounded atelectasis in LLL. Has a history of a left lung mass with subsequent resolution. Doubt PNA; he was started Rocephin which robyn
[2021-06-19] MEDS: MAGNESIUM OXIDE 400 MG TABLET PO (16:10)
[2021-06-19 19:07] VITALS: O2SAT 96
[2021-06-19 22:00] VITALS: BP 107/53; PULSE 98; RESP 16; TEMP 37.7; O2SAT 94
[2021-06-19] MEDS: FAMOTIDINE 10 MG TABLET PO (22:11)
[2021-06-19] MEDS: FERROUS SULFATE 324 MG TABLET PO (22:11)
[2021-06-19] MEDS: ATORVASTATIN 40 MG TABLET PO (22:11)
[2021-06-19] MEDS: cefTRIAXone 2 GM in SODIUM CHLORIDE 0.9% IV 100 ML 200 ML IVPB (23:26)
[2021-06-20 06:00] VITALS: BP 122/54; PULSE 92; RESP 16; TEMP 36.6; O2SAT 94
[2021-06-20 07:05] LABS: Basophils Absolute Auto 0.1 K/mm3 (0.0-0.1); Basophils Percent Auto 1.1 % (0.2-1.2); Eosinophils Absolute Auto 0.2 K/mm3 (0-0.3); Eosinophils Percent Auto 2.6 % (0-4.4); Hematocrit 31.2 % (42.0-52.0); Hemoglobin 10.2 g/dL (14.0-18.0); Immature Granulocyte Percent A 1.4 % (0-0.5); Lymphocytes Percent Auto 12.3 % (18.3-44.2); Mean Corpuscular HGB Conc 32.7 g/dl (32-36); Mean Corpuscular Hemoglobin 29.8 pg (26-34); Mean Corpuscular Volume 91.2 fl (80-100); Mean Platelet Volume 10.9 fl (7.4-10.4); Monocytes Absolute Auto 1.1 K/mm3 (0.1-0.6); Monocytes Percent Auto 14.3 % (2.6-8.5); Neutrophils Percent Auto 68.3 % (45.5-73.1); Platelet Count Result 157 k/mm3 (150-375); Red Blood Count 3.42 M/mm3 (4.6-6.20); Red Cell Distribution Width 17.7 % (11.5-14.5); White Blood Count 7.3 K/mm3 (4.5-10.0)
[2021-06-20 07:23] LABS: Albumin Level 3.7 g/dL (3.5-5.1); Anion Gap 8 mmol/L (8-16); Blood Urea Nitrogen 26 mg/dL (9-20); Calcium 9.5 mg/dL (8.4-10.2); Carbon Dioxide 35 mmol/L (22-30); Chloride 87 mmol/L (98-107); Estimated CRCL calculation 75 ml/min; Estimated Glomerular Filt Rate 52; Glucose 95 mg/dL (65-110); Magnesium 1.6 mg/dL (1.6-2.3); Phosphorus 4.6 mg/dL (2.5-4.5); Potassium 3.3 mmol/L (3.4-5.0); Sodium 130 mmol/L (137-145)
[2021-06-20 08:00] VITALS: PULSE 90; RESP 16; O2SAT 94
--- NOTE | 2021-06-20 08:30 | PCNWS ---
Weekly nutritional screen. Patient is tolerating current diet with adequate intake. No weight loss reported. No nutritional needs at this time.
[2021-06-20] MEDS: ENOXAPARIN 40 MG/0.4 ML SYRINGE SUB-Q (08:47)
[2021-06-20] MEDS: BUMETANIDE INJ 1 MG/4 ML VIAL 2 MG IV PUSH (08:47)
[2021-06-20] MEDS: ASPIRIN 81 MG ENTERIC TABLET PO (08:47)
[2021-06-20] MEDS: POTASSIUM CHLORIDE 20 MEQ TABLET.ER PO ×2 (08:48→16:30)
[2021-06-20] MEDS: MAGNESIUM OXIDE 400 MG TABLET PO (08:48)
[2021-06-20] MEDS: CHOLECALCIFEROL 1,000 UNITS TABLET 2000 UNITS PO (08:48)
[2021-06-20] MEDS: metOLazone 5 MG TABLET PO (08:48)
[2021-06-20] MEDS: MULTIVITAMINS THERAPEUTIC TAB (*BKC) 1 TABLET PO (08:48)
[2021-06-20 08:49] VITALS: PULSE 90
[2021-06-20] MEDS: lisinopriL 5 MG TABLET PO (08:49)
[2021-06-20] MEDS: METOPROLOL SUCCINATE EXT REL 50 MG TABCR PO (08:49)
--- NOTE | 2021-06-20 09:46 | PM.IMPN ---
Progress Note: A&P Assessment and Plan (1) Septicemia: Code(s): A41.9 - Sepsis, unspecified organism Status: Acute Assessment and Plan: Blood cultures x2 positive for Strept G sensitive to Rocephin. Source is felt more likely from cellulitis but can not exclude PNA given the CT scan findings of small left pleural effusion with pleural thickening and adjacent rounded atelectasis in LLL. Repeat BCx NGTD. Continue Rocephin 2gm IV Q24h. ID consult. (2) Cellulitis of left leg: Code(s): L03.116 - Cellulitis of left lower limb Status: Acute Assessment and Plan: Patient with cellulitis of the left lower leg. LE dopplers negative for DVT. 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 Symptomatically worse today with very tender to touch left lower justin area. No knee pain with normal knee ROM. WBC remains normal and again afebrile. CT of the Left LE showing cellulitis but no abscess or osteomyelitis. Continue IV abx. Encouraged him to keep the leg elevated. (3) Acute respiratory failure: Code(s): J96.00 - Acute respiratory failure, unspecified whether with hypoxia or hypercapnia Status: Acute Assessment and Plan: Patient presents with acute respiratory failure. CT without contrast showing small left pleural effusion with pleural thickening with adjacent airspace disease felt to be atelectasis. [place] respiratory failure related to CHF and less likely PNA. Sepsis related to cellulitis. Resolved and on room air now. Follow (4) Acute exacerbation of CHF (congestive heart failure): Qualifiers: Heart failure type: unspecified Qualified Code(s): I50.9 - Heart failure, unspecified Code(s): I50.9 - Heart failure, unspecified Status: Acute Assessment and Plan: BNP 4390. Chest x-ray and CT of the chest not showing significant pulmonary edema but he is massively edematous. Echo showing EF55-60%, Grade II diastolic dysfunction, RV hypokinesis, volume overload with moderate pulmonary HTN. Mitral ring well placed. Abd US showing splenomegaly but no evidence of cirrhosis or ascites. [place] patient has right sided and diastolic CHF. Diuresis with poor results so Metolazone added. Metolazone advanced with improved UOP. Cumulative fluid balance -16.6L with wt dropping from 155 to 135kg. Continue Bumex IV and oral metolazone. Continue daily weights. Replace potassium and Mag. Check apnea link given the right sided findings. (5) Pulmonary hypertension: Code(s): I27.20 - Pulmonary hypertension, unspecified Status: Acute Assessment and Plan: Echo showing moderate pulmonary hypertension with estimated PASP of 55 mmHg. Check apnea link. (6) Splenomegaly: Code(s): R16.1 - Splenomegaly, not elsewhere classified Status: Acute Assessment and Plan: Abd US showing splenomegaly but no evidence of cirrhosis or ascites. Plt count was low but now normal. HIV, [place] spot, Hepatitis panel and RF negative. Etiology could be CHF and/or bacterial septicemia. Consider also lymphoma, SLE or sarcoid. YEIMI positive but only mildly so in a nuclear in a dense fine speckled pattern probably normal variant. Continue to monitor. 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 CT chest on admission showing cardiomegaly with pericardial calcifications. Echo here showing normal pericardium and no effusion. Constrictive pericarditis felt less likely. Suspect CT scan findings related to previous surgery. Cardiology following. (8) Elevated troponin: Code(s): R77.8 - Other specified abnormalities of plasma proteins Status: Acute Assessment and Plan: Troponin elevated to 1.21. EKG showing no acute changes and no chest pa
--- NOTE | 2021-06-20 09:52 | PM.PNCARD ---
Progress Note: A&P Assessment and Plan (1) Acute exacerbation of CHF (congestive heart failure): Qualifiers: Heart failure type: unspecified Qualified Code(s): I50.9 - Heart failure, unspecified Code(s): I50.9 - Heart failure, unspecified Status: Acute Assessment and Plan: Very slow improvement in volume status but he is looking better today, making more urine. He has slightly less edema on his upper thighs Continue 1.5L fluid restriction Monitor renal function electrolytes very closely with daily BMP. Renal function stable today. Potassium 3.3 - give 40 mEq KCL p.o. x 1 He remains volume overloaded, but this is much improved. Urine output continues to be good. Will shift him to oral Bumex 2mg b.i.d. Metolazone 5mg daily. Compressing stockings if able to tolerate with L leg cellulitis. Accurate I's & O's Daily weights Continue medical regimen for his diastolic heart failure including lisinopril, metoprolol. Add spironolactone 20mg daily to regimen (2) Elevated troponin: Code(s): R77.8 - Other specified abnormalities of plasma proteins Status: Acute Assessment and Plan: Type 2 infarction not acute coronary syndrome and/or plaque rupture. (3) CAD (coronary artery disease): Code(s): I25.10 - Atherosclerotic heart disease of [place] coronary artery without angina pectoris Status: Acute Assessment and Plan: Stable, asymptomatic. Continue medical therapy with aspirin, statin Toprol XL, lisinopril. (4) Cellulitis of left leg: Code(s): L03.116 - Cellulitis of left lower limb Status: Acute Assessment and Plan: Per primary service. IV antibiotics. DVT prophylaxis. (5) Septicemia: Code(s): A41.9 - Sepsis, unspecified organism Status: Acute Assessment and Plan: Positive blood cultures thought secondary to cellulitis. Continue clinical observation. Per primary service. If persistent positive blood cultures and or new significant murmur further evaluation may be warranted given history of mitral valve annuloplasty. (6) Status post mitral valve annuloplasty: Code(s): Z98.890 - Other specified postprocedural states Status: Acute Assessment and Plan: Stable. As above. (7) Hyponatremia: Code(s): E87.1 - Hypo-osmolality and hyponatremia Status: Acute Assessment and Plan: Improving with fluid restriction. Subjective Date/time seen: 06/20/21 09:52 Interval history: 56yo male with CAD s/p CABG here for SOB and found to be fluid overloaded. Date of service 06/19/2021: His main complaint is fluid restriction. He denies any chest pain, shortness of breath. Swelling continues to improve. Date of service 06/20/2021: Significant improvement in swelling. He is complaining of pain in in the left lower leg. No shortness of breath, chest pain. Review of Systems Review of Systems: All systems reviewed & are unremarkable except as noted in HPI and below Constitutional: Constitutional: Reports as per HPI, Reports lethargy and Reports weakness Eyes: Eyes: Reports as per HPI and Reports no additional eye complaints ENT: Reports system reviewed and no additional complaints, except as documented and Reports as per HPI Cardiovascular: Cardiovascular: Reports as per HPI, Denies chest pain, Reports leg edema, Denies palpitations, Reports dyspnea and Reports dyspnea on exertion Respiratory: Respiratory: Reports as per HPI, Denies cough, Denies hemoptysis, Reports dyspnea and Reports dyspnea on exertion Gastrointestinal: Gastrointestinal: Reports as per HPI, Reports no additional gastrointestinal complaints and Reports bloating Genitourinary: Genitourinary: Reports as per HPI and Reports urinary frequency Musculoskeletal: Musculoskeletal: Reports no additional musculoskeletal complaints and Reports as per HPI Integumentary/Breasts: Skin/Breast: Reports system reviewed and no additional c
[2021-06-20] MEDS: POTASSIUM CHLORIDE 20 MEQ TABLET 40 MEQ PO (10:20)
[2021-06-20] MEDS: MAGNESIUM SULF 1 GM/D5W 100 ML 1 GM/100 ML BAG IVPB (11:54)
[2021-06-20 14:00] VITALS: BP 127/64; PULSE 89; RESP 20; TEMP 37.4; O2SAT 93
[2021-06-20] MEDS: SPIRONOLACTONE 25 MG TABLET PO (16:30)
[2021-06-20 20:10] VITALS: PULSE 99; RESP 20; O2SAT 92
[2021-06-20] MEDS: FERROUS SULFATE 324 MG TABLET PO (20:12)
[2021-06-20] MEDS: ATORVASTATIN 40 MG TABLET PO (20:12)
[2021-06-20] MEDS: FAMOTIDINE 10 MG TABLET PO (20:13)
[2021-06-20 20:14] VITALS: BP 112/54; PULSE 99; RESP 20; TEMP 36.4; O2SAT 92
[2021-06-21] MEDS: cefTRIAXone 2 GM in SODIUM CHLORIDE 0.9% IV 100 ML 200 ML IVPB (01:01)
[2021-06-21 03:23] VITALS: BP 100/56; PULSE 94; RESP 20; TEMP 36.1; O2SAT 93
[2021-06-21 07:50] LABS: Basophils Absolute Auto 0.1 K/mm3 (0.0-0.1); Basophils Percent Auto 0.9 % (0.2-1.2); Eosinophils Absolute Auto 0.3 K/mm3 (0-0.3); Eosinophils Percent Auto 4.4 % (0-4.4); Hematocrit 31.2 % (42.0-52.0); Immature Granulocyte Absolute 0.08 K/mm3 (0.00-0.031); Immature Granulocyte Percent A 1.2 % (0-0.5); Lymphocytes Absolute Auto 0.84 K/mm3 (0.9-3.2); Lymphocytes Percent Auto 12.7 % (18.3-44.2); Mean Corpuscular HGB Conc 32.1 g/dl (32-36); Mean Corpuscular Hemoglobin 29.2 pg (26-34); Mean Corpuscular Volume 91.2 fl (80-100); Mean Platelet Volume 10.4 fl (7.4-10.4); Monocytes Absolute Auto 1.1 K/mm3 (0.1-0.6); Monocytes Percent Auto 16.4 % (2.6-8.5); Neutrophils Absolute Auto 4.3 K/mm3 (1.3-6.7); Neutrophils Percent Auto 64.4 % (45.5-73.1); Platelet Count Result 144 k/mm3 (150-375); Red Blood Count 3.42 M/mm3 (4.6-6.20); Red Cell Distribution Width 17.8 % (11.5-14.5); White Blood Count 6.6 K/mm3 (4.5-10.0)
[2021-06-21 07:57] LABS: Anion Gap 11 mmol/L (8-16); Blood Urea Nitrogen 27 mg/dL (9-20); Calcium 9.3 mg/dL (8.4-10.2); Carbon Dioxide 33 mmol/L (22-30); Chloride 87 mmol/L (98-107); Estimated CRCL calculation 74 ml/min; Estimated Glomerular Filt Rate 52; Glucose 99 mg/dL (65-110); Magnesium 1.8 mg/dL (1.6-2.3); Potassium 3.4 mmol/L (3.4-5.0); Sodium 131 mmol/L (137-145)
--- NOTE | 2021-06-21 09:28 | PM.PNCARD ---
Progress Note: A&P Assessment and Plan (1) Acute exacerbation of CHF (congestive heart failure): Qualifiers: Heart failure type: unspecified Qualified Code(s): I50.9 - Heart failure, unspecified Code(s): I50.9 - Heart failure, unspecified Status: Acute Assessment and Plan: Very slow improvement in volume status but he is looking better today, making more urine. He has slightly less edema on his upper thighs Continue 2L fluid restriction Monitor renal function electrolytes. Renal function stable today, Potassium 3.4, Mag 1.8, Na 131 He remains volume overloaded, but has had significant improvement. He has diuresed ~18L for this stay. Urine output continues to be good. Continue Bumex 2mg p.o. daily, metolazone 2.5mg daily. Daily weights Continue medical regimen for his diastolic heart failure including lisinopril, metoprolol, spironolactone (2) Elevated troponin: Code(s): R77.8 - Other specified abnormalities of plasma proteins Status: Acute Assessment and Plan: Type 2 infarction not acute coronary syndrome and/or plaque rupture. (3) CAD (coronary artery disease): Code(s): I25.10 - Atherosclerotic heart disease of [place] coronary artery without angina pectoris Status: Acute Assessment and Plan: Stable, asymptomatic. Continue medical therapy with aspirin, statin Toprol XL, lisinopril. (4) Cellulitis of left leg: Code(s): L03.116 - Cellulitis of left lower limb Status: Acute Assessment and Plan: Per primary service. IV antibiotics. DVT prophylaxis. (5) Septicemia: Code(s): A41.9 - Sepsis, unspecified organism Status: Acute Assessment and Plan: Positive blood cultures thought secondary to cellulitis. Continue clinical observation. Per primary service. If persistent positive blood cultures and or new significant murmur further evaluation may be warranted given history of mitral valve annuloplasty. (6) Status post mitral valve annuloplasty: Code(s): Z98.890 - Other specified postprocedural states Status: Acute Assessment and Plan: Stable. As above. (7) Hyponatremia: Code(s): E87.1 - Hypo-osmolality and hyponatremia Status: Acute Assessment and Plan: Improving with fluid restriction. Subjective Date/time seen: 06/21/21 09:28 Interval history: 56yo male with CAD s/p CABG here for SOB and found to be fluid overloaded. Date of service 06/19/2021: His main complaint is fluid restriction. He denies any chest pain, shortness of breath. Swelling continues to improve. Date of service 06/20/2021: Significant improvement in swelling. He is complaining of pain in in the left lower leg. No shortness of breath, chest pain. Date of service 06/21/2021: Continues to diurese and has less LE swelling today. Denies chest pain, shortness of breath, palpitations. Feeling much better overall. OK for discharge from a cardiac perspective. Review of Systems Review of Systems: All systems reviewed & are unremarkable except as noted in HPI and below Constitutional: Constitutional: Reports as per HPI, Reports lethargy and Reports weakness Eyes: Eyes: Reports as per HPI and Reports no additional eye complaints ENT: Reports system reviewed and no additional complaints, except as documented and Reports as per HPI Cardiovascular: Cardiovascular: Reports as per HPI, Denies chest pain, Reports leg edema, Denies palpitations, Reports dyspnea and Reports dyspnea on exertion Respiratory: Respiratory: Reports as per HPI, Denies cough, Denies hemoptysis, Reports dyspnea and Reports dyspnea on exertion Gastrointestinal: Gastrointestinal: Reports as per HPI, Reports no additional gastrointestinal complaints and Reports bloating Genitourinary: Genitourinary: Reports as per HPI and Reports urinary frequency Musculoskeletal: Musculoskeletal: Reports no additional musculoskeletal complaints and Rep
[2021-06-21 11:04] VITALS: PULSE 96
[2021-06-21] MEDS: METOPROLOL SUCCINATE EXT REL 50 MG TABCR PO (11:04)
[2021-06-21] MEDS: SPIRONOLACTONE 25 MG TABLET PO (11:04)
[2021-06-21] MEDS: ENOXAPARIN 40 MG/0.4 ML SYRINGE SUB-Q (11:04)
[2021-06-21] MEDS: POTASSIUM CHLORIDE 20 MEQ TABLET.ER PO (11:05)
[2021-06-21] MEDS: lisinopriL 5 MG TABLET PO (11:06)
[2021-06-21] MEDS: ASPIRIN 81 MG ENTERIC TABLET PO (11:06)
[2021-06-21] MEDS: CHOLECALCIFEROL 1,000 UNITS TABLET 2000 UNITS PO (11:06)
[2021-06-21] MEDS: MAGNESIUM OXIDE 400 MG TABLET PO (11:06)
[2021-06-21] MEDS: MULTIVITAMINS THERAPEUTIC TAB (*BKC) 1 TABLET PO (12:08)
[2021-06-21] MEDS: metOLazone 5 MG TABLET PO (12:08)
--- NOTE | 2021-06-21 12:38 | WPDINFPN2 ---
Progress Note: A&P Assessment and Plan (1) Septicemia: Code(s): A41.9 - Sepsis, unspecified organism Status: Acute Assessment and Plan: Grp G Strep bacteremia, with infection, LLE source, no complications. Fluid overload. CRI. REC Cephalexin to complete 14 days of antibiotic, see order. Ok home Subjective Date/time seen: 06/21/21 12:38 Objective Data Vital Signs Vital Signs: Vital Signs - 24 hr 06/20/21 14:00 06/20/21 20:10 06/20/21 20:14 Temperature 37.4 C 36.4 C Pulse Rate 89 99 99 Respiratory Rate 20 20 20 Blood Pressure 127/64 112/54 L Pulse Oximetry 93 92 92 06/21/21 03:23 06/21/21 11:04 Temperature 36.1 C L Pulse Rate 94 96 Respiratory Rate 20 Blood Pressure 100/56 L Pulse Oximetry 93 Intake/Output Intake/Output: Intake & Output 06/18/21 06/19/21 06/20/21 06/21/21 23:59 23:59 23:59 23:59 Intake Total 1500 1070 1410 390 Output Total 7650 8375 5300 1300 [facility] [phone] Meds/Results Medications: Active Medications Generic Name Dose Route Start Last Admin Trade Name Freq PRN Reason Stop Dose Admin Acetaminophen 650 mg 06/20/21 10:24 Acetaminophen 325 Mg Tablet PO Q6H PRN Mild Pain (1-5) Or Fever Hydrocodone Bitart/Acetaminophen 1 tab 06/20/21 10:24 Hydrocodone/Acetaminophen (*Crx) 5-325 Mg Tablet PO Q6H PRN Pain Rated 6-10 Albuterol 2.5 mg 06/13/21 05:22 Albuterol Sulfate Neb 2.5 Mg/0.5 Ml Inh INHALATION Q6HRT PRN Shortness Of Breath Aspirin 81 mg 06/13/21 09:00 06/21/21 11:06 Aspirin 81 Mg Enteric Tablet PO 81 mg QAM KOBI Administration Atorvastatin Calcium 40 mg 06/13/21 21:00 06/20/21 20:12 Atorvastatin 40 Mg Tablet PO 40 mg HS KOBI Administration Bumetanide 2 mg 06/21/21 09:00 Bumetanide 1 Mg Tablet PO DAILY KOBI Enoxaparin Sodium 40 mg 06/13/21 09:00 06/21/21 11:04 Enoxaparin 40 Mg/0.4 Ml Syringe SUB-Q 40 mg DAILY KOBI Administration Famotidine 10 mg 06/14/21 21:00 06/20/21 20:13 Famotidine 10 Mg Tablet PO 10 mg HS KOBI Administration Ferrous Sulfate 324 mg 06/14/21 21:00 06/20/21 20:12 Ferrous Sulfate 324 Mg Tablet PO 324 mg HS KOBI Administration Lisinopril 5 mg 06/15/21 09:00 06/21/21 11:06 Lisinopril 5 Mg Tablet PO 5 mg QAM KOBI Administration Magnesium Oxide 400 mg 06/19/21 13:45 06/21/21 11:06 Magnesium Oxide 400 Mg Tablet PO 400 mg DAILY KOBI Administration Metolazone 5 mg 06/21/21 09:00 06/21/21 12:08 Metolazone 5 Mg Tablet PO 5 mg DAILY KOBI Administration Metoprolol Succinate 50 mg 06/15/21 09:00 06/21/21 11:04 Metoprolol Succinate Ext Rel 50 Mg Tabcr PO 50 mg QAM KOBI Administration Multivitamins Therapeutic 1 tablet 06/14/21 14:30 06/21/21 12:08 Multivitamins Therapeutic Tab (*Bkc) PO 1 tablet DAILY KOBI Administration Potassium Chloride 20 meq 06/13/21 08:00 06/21/21 11:05 Potassium Chloride 20 Meq Tablet.Er PO 20 meq BIDWM KOBI Administration Spironolactone 25 mg 06/20/21 17:00 06/21/21 11:04 Spironolactone 25 Mg Tablet PO 25 mg BID KOBI Administration Vitamin D 2,000 units 06/14/21 14:30 06/21/21 11:06 Cholecalciferol 1,000 Units Tablet PO 2,000 units DAILY KOBI Administration Radiology Results: ITS Impressions Chest X-Ray 06/12/21 21:30 IMPRESSION: 1. Stable small left pleural effusion. 2. Worsened airspace opacities in left mid and lower lung zones and right lower lung zone, consistent with atelectasis versus pneumonia. 3. Cardiomegaly. Chest CT 06/13/21 08:45 IMPRESSION: 1. Small pleural effusions, left greater than right with underlying compressive atelectasis. Superimposed pneumonia not excluded. 2: Cardiomegaly with pericardial calcifications. Correlate clinically for indications of constrictive pericarditis. 3: Ascites. Venous Doppler Study 06/14/21 10:35 IMPRESSION: 1. No deep venous thrombos
[2021-06-21] MEDS: BUMETANIDE 1 MG TABLET 2 MG PO (12:45)
--- NOTE | 2021-06-21 13:10 | PM.DS ---
DS: Admitting Diagnosis Discharge Date 06/21/21 Admitting Diagnosis Shortness of breath DS: Discharge Diagnosis Discharge Diagnosis (1) Septicemia: Code(s): A41.9 - Sepsis, unspecified organism Status: Acute Assessment and Plan: Blood cultures x2 positive for Strept G sensitive to Rocephin. Source is felt more likely from cellulitis but can not exclude PNA given the CT scan findings of small left pleural effusion with pleural thickening and adjacent rounded atelectasis in LLL. Repeat BCx NGTD. Abx narrowed to Rocephin 2gm IV Q24h. ID consulted and appreciate their input. Home with Cephalexin. (2) Cellulitis of left leg: Code(s): L03.116 - Cellulitis of left lower limb Status: Acute Assessment and Plan: Patient with cellulitis of the left lower leg. LE dopplers negative for DVT. 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 Started on broad spectrum abx and narrowed to Rocephin. WBC normalized. CT of the Left LE showing cellulitis but no abscess or osteomyelitis. Pain improved. As above. (3) Acute respiratory failure: Code(s): J96.00 - Acute respiratory failure, unspecified whether with hypoxia or hypercapnia Status: Acute Assessment and Plan: Patient presents with acute respiratory failure. CT without contrast showing small left pleural effusion with pleural thickening with adjacent airspace disease felt to be atelectasis. [place] respiratory failure related to CHF and less likely PNA. Sepsis related to cellulitis. Resolved and on room air now. (4) Acute exacerbation of CHF (congestive heart failure): Qualifiers: Heart failure type: unspecified Qualified Code(s): I50.9 - Heart failure, unspecified Code(s): I50.9 - Heart failure, unspecified Status: Acute Assessment and Plan: BNP 4390. Chest x-ray and CT of the chest not showing significant pulmonary edema but he is massively edematous. Echo showing EF55-60%, Grade II diastolic dysfunction, RV hypokinesis, volume overload with moderate pulmonary HTN. Mitral ring well placed. Abd US showing splenomegaly but no evidence of cirrhosis or ascites. [place] patient has right sided and diastolic CHF. Diuresis with poor results so Metolazone added. Metolazone advanced with improved UOP. Cumulative fluid balance -18.8L with wt dropping from 155 to 131.5kg. Changed to oral Bumex and metolazone. Continue daily weights at home. (5) Pulmonary hypertension: Code(s): I27.20 - Pulmonary hypertension, unspecified Status: Acute Assessment and Plan: Echo showing moderate pulmonary hypertension with estimated PASP of 55 mmHg. Apnea link positive with AHI 16 and RI 18. Arrange for outpatient sleep study. (6) Splenomegaly: Code(s): R16.1 - Splenomegaly, not elsewhere classified Status: Acute Assessment and Plan: Abd US showing splenomegaly but no evidence of cirrhosis or ascites. Plt count was low but now has normalized. HIV, [place] spot, Hepatitis panel and RF negative. Etiology could be CHF and/or bacterial septicemia. Consider also lymphoma, SLE or sarcoid but felt less likely. YEIMI positive but only mildly so in a nuclear in a dense fine speckled pattern probably normal variant. Defer to outpatient primary care provider for further management. 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 CT chest on admission showing cardiomegaly with pericardial calcifications. Echo here showing normal pericardium and no effusion. Constrictive pericarditis felt less likely. Suspect CT scan findings related to previous surgery. Cardiology followed along. (8) Elevated troponin: Code(s): R77.8 - Other specified abnormalities of plasma proteins
--- NOTE | 2021-06-21 17:19 | CONS_ITS ---
DATE OF CONSULTATION: 06/21/2021 REASON FOR CONSULTATION: Strep bacteremia. HISTORY OF PRESENT ILLNESS: 56-year-old male with chronic heart disease including coronary artery occlusions. He developed anasarca including in the left leg followed by some erythema in the left leg. He also noted an abrasion over the medial calf that he thinks may have been caused by his toenail on the opposite side. He has no pets at home and has had no other known trauma to the leg. He has had distant past arthroscopic knee surgery, no known vascular compromise to the left leg. He did have rigors on the morning of admission, presented to the hospital. He has been given vancomycin and azithromycin later followed by ceftriaxone which he remains on now. Today is antibiotic day 10. I was consulted for further advice. He has had no further rigors. He has lost some 45 pounds of weight during this hospital admission. He does have chronic lower extremity edema, which has improved. No other events here in the hospital. ALLERGIES: NONE KNOWN. PRESENT MEDICATIONS: As above. HABITS: No tobacco, alcohol, or illicit drugs. Quit smoking in 2017. 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 FAMILY HISTORY: Not pertinent to his present illness. SOCIAL HISTORY: Had been without insurance until recently. Thus delay in medical treatment. His family is at the bedside. REVIEW OF SYSTEMS: Constitutional, skin, musculoskeletal, back, respiratory, GI otherwise negative. PHYSICAL EXAMINATION: GENERAL: Middle-aged male who appears his actual age, in no acute distress. VITAL SIGNS: His temperature on arrival was 37 and a T-max of 38.1, 3 days ago, otherwise afebrile, 100/56, 94, 20, 93% on room air. SKIN: Warm and dry. No erythroderma. No rashes. EENT: The conjunctivae are normal. Pupils equal, round, reactive. The oropharynx, oral mucosa normal. NECK: No masses, thyromegaly or meningismus. LUNGS: Clear to auscultation and percussion. CARDIAC: Regular rate and rhythm. No murmur, gallop, or rub. ABDOMEN: Morbidly obese, nontender. No masses. No organomegaly. EXTREMITIES: No edema in the upper extremities. Right leg has 1+ nonpitting edema at the ankle. On the left, he has 2+ pitting and nonpitting edema from the mid justin distally into the foot. He has circumferential erythema. He has an abrasion over the medial calf with crusting. There is warmth. There is mild tenderness. There is no fluctuance, crepitus. LABORATORY DATA: Blood cultures 2 out of 2 sets, group G strep. Repeat blood cultures final, no growth. White blood cell count normal, previously was high. Hemoglobin stable at 10.0, platelets are 144. His creatinine is consistently abnormal at 1.4 with a BUN of 27, estimated GFR 52, glucose normal. RADIOLOGY: Tibia-fibula x-ray performed 2 days ago suggested cellulitis, osteoarthritis, no other findings. CT of the chest, abdomen, pelvis showed small effusion, ascites, splenomegaly. There was mild mediastinal adenopathy, calcific pericarditis. ASSESSMENT: 1. Group G strep bacteremia with infection, left leg source with cellulitis at the distal left leg. In turn, I think this is due to a superficial trauma. He has no complications to suggest distant focus of infection such as in the spine. Also no clinical findings to suggest necrotizing fasciitis, superficial deep space abscess, osteomyelitis, septic arthritis. 2. Fluid overload and congestive heart failure, treated. 3. Mild splenomegaly. RECOMMENDATI
== END 2021-06-21 14:19 | disposition home or self-care (01) | DRG 720 ==
LOC: ANHED 23:32 → ANHICU 23:43 → ANHIMU 06-14 00:20 → ANH3MEDSUR 06-21 13:27 → ANHICU 06-24 15:19 → ANHIMU 06-24 15:19
PROVIDERS: Internal Medicine Cardiovascular Disease; Admitting Provider Internal Medicine; Emergency Provider Emergency Medicine; PCP Family Medicine; Visit Provider Internal Medicine
DX: A40.8 Other streptococcal sepsis (principal); I50.33 Acute on chronic diastolic (congestive) heart failure; Z95.1 Presence of aortocoronary bypass graft; Z87.891 Personal history of nicotine dependence; R77.8 Other specified abnormalities of plasma proteins; I25.10 Atherosclerotic heart disease of native coronary artery without angina pectoris; D69.6 Thrombocytopenia, unspecified; E87.2 Acidosis; E87.3 Alkalosis; J18.9 Pneumonia, unspecified organism; N18.30 Chronic kidney disease, stage 3 unspecified; J96.01 Acute respiratory failure with hypoxia; E66.01 Morbid (severe) obesity due to excess calories; Z68.39 Body mass index [BMI] 39.0-39.9, adult; L03.116 Cellulitis of left lower limb; I31.1 Chronic constrictive pericarditis; I27.20 Pulmonary hypertension, unspecified; R16.1 Splenomegaly, not elsewhere classified; I21.A1 Myocardial infarction type 2; E87.1 Hypo-osmolality and hyponatremia; R91.8 Other nonspecific abnormal finding of lung field; I25.2 Old myocardial infarction; I34.0 Nonrheumatic mitral (valve) insufficiency; Z98.890 Other specified postprocedural states
CPT/HCPCS: 36415; 36600; 71045; 71250; 73700; 74176; 76700; 80048; 80053; 80069; 80074; 80202; 81001; 82248; 82805; 83605; 83615; 83735; 83880; 84100; 84443; 84484; 85025; 85027; 85055; 85610; 85730; 86038; 86039; 86308; 86430; 86703; 87040; 87147; 87186; 93005; 93970; 94762; 96365; 96367; 96372; 96374; 96375; 99285; A9270; C8929; G0378; G0379; G0432; J0456; J0696; J1650; J1940; J3370; J3475; Q9957

== ENCOUNTER 2021-07-14 08:32 | Observation (INO) | payer OTHER, SELFPAY ==
[2021-07-14] VITALS (43 sets, daily range): BP systolic 93–127; BP diastolic 56–69; PULSE 56–100; RESP 11–22; TEMP 35.6–36.7; O2SAT 98–100; BMI 34.7
--- NOTE | ~2021-07-14 | XR_ITS ---
EXAMINATION: XR chest 1V portable EXAM DATE: 07/14/2021 08:51 INDICATION: Syncope, weakness. TECHNIQUE: Portable AP frontal chest x-ray was obtained. Comparison is made to prior examination from 06/12/21. FINDINGS: Sternotomy wires are present without findings to suggest sternal dehiscence. Cardiac valve replacement. Small left pleural effusion with significant improvement compared to prior study, and al so significant improvement in the left lower lobe airspace disease. There is focal approximately 1.5 cm retrocardiac opacity which is still visualized, most likely some residual atelectasis; no focal no dule was identified on CT last month. IMPRESSION: Small residual left pleural effusion and left lower lobe opacity could be postinfectious atelectasis but recommend follow-up chest x-ray or CT in 1-3 months. Reviewed, dictated and finalized at location A. S REGISTERED NURSE RN IMPRESSION: Small residual left pleural effusion and left lower lobe opacity co uld be postinfectious atelectasis but recommend follow-up chest x-ray or CT in 1-3 months.
--- NOTE | ~2021-07-14 | CT_ITS ---
EXAMINATION: CT brain wo con, CT facial bones wo con EXAM DATE: 07/14/2021 09:49 INDICATION: Fall, head injury. Bruise under left eye. Chin laceration. TECHNIQUE: Spiral CT of the head was performed without contrast. Axial, coronal and sagittal images were reviewed. Spiral CT of the facial bones was performed without contrast. Axial images were revie wed. Coronal and sagittal reformatted images were also reviewed. The dose-length product (DLP) for this examination was 681.00 (accession [id number]), 593.60 (accession [id number]) mGy-cm. Th e exposure was tailored according to patient size, and iterative reconstruction (ASIR) was used as ad ditional dose reduction technique. There is no prior study for comparison. FINDINGS: HEAD CT: There is no acute intraparenchymal hemorrhage. No evidence of intraparenchymal brain mass l esion. No evidence of acute infarction. There is no mass effect or midline shift. There is no obstru ctive hydrocephalus suspected. There are no extra-axial collections. There are no calvarial acute f ractures. Mastoid air cells are well aerated. FACIAL CT: There are no displaced acute nasal bone fractures. The mandible, sinuses and orbits are i ntact. The orbits, globes and extraocular muscles are unremarkable. Probable identification of ch in laceration. Moderate leftward nasal septal deviation. Right nemo bullosa. Mild mucoperiosteal t hickening left maxillary sinus. Dental cavities. Moderate carotid calcification, arterial sclerotic disease, with unknown amount of additional atherosclerotic disease. Consider correlating with caroti d ultrasound. The odontoid process is intact. The lateral masses of C1 line up with C2. IMPRESSION: 1. No acute intracranial findings. 2. No acute facial fracture. 3. Carotid bulb arterial sclerosis; consider follow-up nonemergent ultrasound. 4. Dental cavities. 5. Chin laceration. Reviewed, dictated and finalized at location A. MAKER IMPRESSION: 1. No acute intracranial findings. 2. No acute facial fracture. 3. Carotid bulb arterial sclerosis; consider follow-up nonemergent ultrasound. 4. Dental cavities. 5. Chin laceration.
--- NOTE | 2021-07-14 08:36 | ECG_ITS ---
Measurements Intervals [place] Rate: 67 P: 62 MT: 187 QRS: 95 QRSD: 108 T: 10 QT: 394 QTc: 417 Interpretive Statements SINUS RHYTHM RIGHT AXIS DEVIATION DELAYED PRECORDIAL R/S TRANSITION BORDERLINE ECG Electronically Signed On 07-14-2021 17:25:37 BILLING ADMINISTRATOR by Roe Rob D.O.
--- NOTE | 2021-07-14 08:45 | ED.GENADULT ---
HPI - General Adult General Chief complaint: Syncope Stated complaint: syncopal Source: RN notes reviewed History of Present Illness HPI narrative: Patient presents emergency department from home via EMS for syncopal episode. Patient states he got up this morning and had taken a shower and gotten a couple coffee and been doing well states he had gone to get a another couple coffee and had been in the microwave when he began to feel lightheaded and dizzy like he may pass out he states at that time he sat down and then subsequently passed out and fell to the ground he states that that time he woke up with some blood coming from his chin and EMS was called and he states that this time he feels better he denies any dizziness he states he does have some pain in his chin as well as a mild headache from the fall he denies any fevers or chills vision changes chest pain shortness of breath abdominal pain nausea vomiting. Patient is unsure of his last tetanus shot per EMS when they first arrived patient systolic blood pressures in the 70s. States he is feeling well this morning prior to the syncopal episode Related Data Home Medications Medication Instructions Recorded Confirmed aspirin [Adult Low Dose Aspirin] 81 mg PO HS 06/14/21 06/18/21 cholecalciferol (vitamin D3) 50 mcg PO DAILY 06/14/21 07/14/21 [Vitamin D3] ferrous sulfate 325 mg PO HS 06/14/21 07/14/21 multivitamin 1 tablet PO DAILY 06/14/21 06/14/21 famotidine 10 mg PO DAILY 06/18/21 06/18/21 Allergies Allergy/AdvReac Type Severity Reaction Status Date / Time No Known Allergies Allergy Verified 07/14/21 08:52 Review of Systems Review of Systems: Gen.: Denies fevers or chills Eyes: Denies eye pain or visual change ENT: Denies congestion Respiratory: Denies shortness of breath or cough CV: Reports syncope GI: Denies abdominal pain nausea, emesis or diarrhea Musculoskeletal: Denies back pain or muscle pain Neuro: Denies numbness, tingling, weakness or focal weakness Skin: Reports laceration Except as documented, all other systems reviewed and negative [facility] Past Medical History Medical History CAD (coronary artery disease) Family History Family History Mother Patient's mother is in good health Diabetes mellitus Father Carcinoma of colon, Onset Age: 36 Sibling Colon polyp Other Family history of coronary artery disease Social History Social History Smoking status: Former smoker Additional smoking assessment comments: 03/2017 Alcohol intake: never Substance use: never Substance use type: does not use Spiritual care concerns: No Exam Narrative: APPEARANCE: No acute distress, nontoxic, resting in bed EYES: EOMI, PERRL HEENT: Normocephalic, tender to palpation of the anterior and inferior chin forage motion of the jaw without pain nares patent Neck: Supple no midline tenderness palpation RESPIRATORY: No respiratory distress Clear to auscultation bilaterally with no rhonchi wheezing or rales. CARDIOVASCULAR: Regular rate and rhythm without murmurs rubs or gallops. ABDOMINAL: Soft, nontender, nondistended, no rebound or guarding MUSCULOSKELETAl: Moves all extremities. No clubbing, cyanosis or edema. NEURO: Awake and alert x3. Following commands, speech normal, no focal deficits SKIN:: Warm, dry. No rashes abrasion under left eye with no active bleeding, inferior chin with a 1.5 cm laceration is linear and deep with mild venous bleeding no foreign PSYCHIATRIC: Normal affect/mood, Course Course Emergency Course: Patient's laceration repaired by RAMANA Gant Discussed with Dr. Mckenzie presentation work-up agrees with consult Discussed with Dr. Miller presentation work-up agrees with admission at this time Discussed with patient and family results of workup and diag
[2021-07-14] MEDS: TETANUS,DIPHTHERIA,AC PERTUSSIS ADULT (0.5 ML) BOOSTRIX IM (08:57)
[2021-07-14] MEDS: SODIUM CHLORIDE 0.9% IV 500 ML 999 ML IV CONT (08:57)
[2021-07-14 09:28] LABS: Basophils Absolute Auto 0.1 K/mm3 (0.0-0.1); Basophils Percent Auto 0.8 % (0.2-1.2); Eosinophils Absolute Auto 0.9 K/mm3 (0-0.3); Eosinophils Percent Auto 10.7 % (0-4.4); Hematocrit 35.1 % (42.0-52.0); Hemoglobin 11.7 g/dL (14.0-18.0); Immature Granulocyte Absolute 0.03 K/mm3 (0.00-0.031); Immature Granulocyte Percent A 0.4 % (0-0.5); Lymphocytes Absolute Auto 1.03 K/mm3 (0.9-3.2); Lymphocytes Percent Auto 12.1 % (18.3-44.2); Mean Corpuscular HGB Conc 33.3 g/dl (32-36); Mean Corpuscular Hemoglobin 29.2 pg (26-34); Mean Corpuscular Volume 87.5 fl (80-100); Mean Platelet Volume 11.5 fl (7.4-10.4); Monocytes Absolute Auto 0.7 K/mm3 (0.1-0.6); Monocytes Percent Auto 7.7 % (2.6-8.5); Neutrophils Absolute Auto 5.8 K/mm3 (1.3-6.7); Neutrophils Percent Auto 68.3 % (45.5-73.1); Platelet Count Result 84 k/mm3 (150-375); Red Blood Count 4.01 M/mm3 (4.6-6.20); Red Cell Distribution Width 16.9 % (11.5-14.5); White Blood Count 8.5 K/mm3 (4.5-10.0)
[2021-07-14 09:39] LABS: Alanine Aminotransferase 42 U/L (4-50); Albumin Level 4.7 g/dL (3.5-5.1); Alkaline Phosphatase 154 U/L (38-126); Anion Gap 11 mmol/L (8-16); Aspartate Amino Transferase 49 U/L (17-59); Bilirubin,Total 1.5 mg/dL (0.2-1.3); Blood Urea Nitrogen 68 mg/dL (9-20); Calcium 10.7 mg/dL (8.4-10.2); Carbon Dioxide 25 mmol/L (22-30); Chloride 96 mmol/L (98-107); Estimated CRCL calculation 45 ml/min; Estimated Glomerular Filt Rate 31; Glucose 125 mg/dL (65-110); INR 1.1; Potassium 4.3 mmol/L (3.4-5.0); Prothrombin Time 14.2 Seconds (11.1-14.7); Sodium 132 mmol/L (137-145)
[2021-07-14 09:40] LABS: Partial Thromboplastin Time 26.4 SECONDS (22.3-36.8)
[2021-07-14 10:05] LABS: Troponin I < 0.012 ng/mL (0.000-0.034)
[2021-07-14 10:06] LABS: NT Pro B Type Natriuretic Pept 564 pg/mL (5-100)
[2021-07-14 10:28] LABS: Add Urine Microscopic? NO; Appearance Urine Clear (Clear); Bilirubin Urine Negative (Negative); Blood Urine Negative (Negative); Color Urine Yellow (Yellow); Glucose Urine UA Negative (Negative); Ketones Urine Negative (Negative); Leukocyte Esterase Ur Negative LEU/UL (Negative); Nitrate Urine Negative (Negative); Protein Urine Negative (Negative); Specific Grav Ur 1.017 (1.001-1.035); Urobilinogen Urine Negative mg/dL (<2.0)
--- NOTE | 2021-07-14 10:42 | P.OP_ITS ---
Procedures Laceration Laceration 1: Site: face (just under the chin) Size (cm): 1.5 Description: linear and clean Depth: simple, single layer Anesthetic used: with epi Anesthesia technique: local infiltration Amount (ml): 2 Pre-repair: irrigated Skin layer closed with: chromic Size (cm): 5-0 Number of sutures: 4 Technique: simple, interrupted wound edges well approximated. Tolerated procedure well. Told that dis solvable sutures will fall out on their own. Recommend wound recheck with PCP in about 10 days. Return with any signs of infection
[2021-07-14] MEDS: SODIUM CHLORIDE 0.9% IV 1,000 ML 80 ML IV CONT (12:45)
--- NOTE | 2021-07-14 22:14 | PC.NURSE ---
SBAR faxed to [phone].
--- NOTE | 2021-07-14 22:43 | PC.NURSE ---
Report to BRITTANY Burns. Pt's NS infusing on transport to inpatient bed 259-01.
--- NOTE | 2021-07-14 22:50 | ADMGEN ---
This patient, Donta Copeland, was admitted to Medical Room 259-01. Patient/family oriented to hospital policies and general routines including ID bracelet, bed and alarms, visiting hours, pain management, procedures, bathroom and other care routines, personal items, smoking policy, room service/diet, and visiting hours. Information on how to activate the Rapid Response Team has been discussed. Patient/Family are encouraged to report perceived risks to care and to ask questions if they do not understand what they are told or what they should do.
[2021-07-15] VITALS (11 sets, daily range): BP systolic 101–132; BP diastolic 53–66; PULSE 80–98; RESP 16–18; TEMP 36.2–36.6; O2SAT 99–100
[2021-07-15] MEDS: SODIUM CHLORIDE 0.9% IV 1,000 ML 80 ML IV CONT (00:35)
--- NOTE | 2021-07-15 03:13 | PM.IMHP ---
H&P: HPI History of Present Illness Date/Time: 07/15/21 03:13 Chief Complaint: Passed out Narrative: 56-year-old male with past medical history of coronary artery disease status post CABG, mitral valve annuloplasty, hypertension, and chronic kidney disease who presented to the ER after having a syncopal episode. The patient had had a recent hospitalization 06/13/2021 through 06/21/2021 due to bacteremia and sepsis from group G streptococcal infection associated with cellulitis from the left lower extremity and CHF exacerbation. During that hospitalization he treated with antibiotics and completed his antibiotic course when he went home. He was also placed on metolazone and Bumex. He reports that over the last several days he has felt as if he cannot stay down on the fluid restriction because his mouth is too dry. He is feeling thirsty all the time. Yesterday morning he got up to could get a cup of coffee. All he was standing at the micro AV began to feel lightheaded and dizzy like he may pass out. He did make it to the chair to sit down but then passed out and fell to the ground. He woke up and had reportedly told his mother I meant to do that. He thinks that he was confused for a minute or 2 after the fall. When he came to he had some blood coming from his chin an a mild frontal headache. He denies any chest pain, palpitations or shortness of breath. He reports that he has been weighing himself every day since the at home in his weights have been stable. He denies any cough, congestion, fevers or chills. On EMS arrival to the patient's home his systolic blood pressures were in the 70s. On arrival to the ER his systolic blood pressure was 94/65. He did not have any other episodes of lightheadedness. He reports that his urine output has been steady and his urine is not darker than usual. He reports having a good appetite. Currently he states that he has a mild frontal headache. He denies any vision changes. Review of Systems Review of Systems: 12 systems were reviewed with pertinent positives and negatives per HPI. Except as documented in the HPI, all other systems were reviewed and are negative. [facility] Past Medical History Medical History (Updated 07/15/21 @ 06:33 by Tonia Izquierdo DO) Atrial fibrillation Post CABG Bacteremia due to Streptococcus (06/13/21) Group G strep CAD (coronary artery disease) Chronic kidney disease, stage 3 Grade III diastolic dysfunction (~2016) Echocardiogram 2019: Mild concentric left ventricular hypertrophy, mild enlargement left ventricular cavity, left ventricular global systolic function lower limit of normal with inferior septal hypokinesis, pseudonormal diastolic dysfunction grade 2, ejection fraction 55%, mild left atrial enlargement, annular region thickened with prior annuloplasty, moderate mitral valve regurgitation, minimal mitral stenosis, mild pulmonary hypertension with RVSP of 41, left ventricular were not well-visualized definity contrast used Hyperlipidemia Hyponatremia Chronic Myocardial infarction of inferior wall (03/24/17) Obstructive sleep apnea Noted on [facility]nea[employer] 2017 however polysomnogram 2018 was negative for sleep apnea Pulmonary hypertension Restrictive lung disease (~2017) Moderate reticulin dizzy noted PFTs 2018 Splenomegaly Uncertain etiology Surgical History Surgical History (Updated 07/15/21 @ 03:28 by Tonia Izquierdo DO) History of appendectomy History of arthroscopic knee surgery History of colonoscopy with polypectomy (~2016) History of esophagogastroduodenoscopy (EGD) (~2016) Gastric ulcers Hx of CABG March 27, 2017 BANG graft to LAD, saphenous vein graft to posterior descending, mitral valve repair with Number 28 Bobby-Wong annuloplasty ring Status post mitral valve annuloplasty (03/27/17) Family History Family History Mother Diabetes mellitus Patient's mother is in good health Fa
[2021-07-15] MEDS: ATORVASTATIN 40 MG TABLET PO (04:34)
[2021-07-15] MEDS: ASPIRIN 81 MG ENTERIC TABLET PO (04:34)
[2021-07-15] MEDS: FERROUS SULFATE 324 MG TABLET PO (04:34)
[2021-07-15 06:10] LABS: Basophils Percent Auto 0.5 % (0.2-1.2); Eosinophils Absolute Auto 0.7 K/mm3 (0-0.3); Eosinophils Percent Auto 8.6 % (0-4.4); Hematocrit 31.3 % (42.0-52.0); Hemoglobin 10.5 g/dL (14.0-18.0); Immature Granulocyte Absolute 0.02 K/mm3 (0.00-0.031); Immature Granulocyte Percent A 0.3 % (0-0.5); Immature Platelet Fraction Pct 6.6 % (0.9-11.2); Lymphocytes Absolute Auto 0.95 K/mm3 (0.9-3.2); Lymphocytes Percent Auto 12.4 % (18.3-44.2); Mean Corpuscular HGB Conc 33.5 g/dl (32-36); Mean Corpuscular Hemoglobin 29.4 pg (26-34); Mean Corpuscular Volume 87.7 fl (80-100); Mean Platelet Volume 11.9 fl (7.4-10.4); Monocytes Absolute Auto 0.8 K/mm3 (0.1-0.6); Neutrophils Absolute Auto 5.2 K/mm3 (1.3-6.7); Neutrophils Percent Auto 68.2 % (45.5-73.1); Platelet Count Result 57 k/mm3 (150-375); Red Blood Count 3.57 M/mm3 (4.6-6.20); Red Cell Distribution Width 16.4 % (11.5-14.5); White Blood Count 7.7 K/mm3 (4.5-10.0)
[2021-07-15 07:53] LABS: Alanine Aminotransferase 39 U/L (4-50); Albumin Level 4.3 g/dL (3.5-5.1); Alkaline Phosphatase 138 U/L (38-126); Anion Gap 10 mmol/L (8-16); Aspartate Amino Transferase 46 U/L (17-59); Bilirubin,Total 1.4 mg/dL (0.2-1.3); Blood Urea Nitrogen 48 mg/dL (9-20); Calcium 10.1 mg/dL (8.4-10.2); Carbon Dioxide 23 mmol/L (22-30); Chloride 101 mmol/L (98-107); Estimated CRCL calculation 70 ml/min; Estimated Glomerular Filt Rate 52; Glucose 134 mg/dL (65-110); Potassium 4.2 mmol/L (3.4-5.0); Sodium 134 mmol/L (137-145)
[2021-07-15] MEDS: MAGNESIUM OXIDE 400 MG TABLET PO (10:00)
[2021-07-15] MEDS: SPIRONOLACTONE 25 MG TABLET PO (10:00)
[2021-07-15] MEDS: CHOLECALCIFEROL 1,000 UNITS TABLET 2000 UNITS PO (10:00)
[2021-07-15] MEDS: lisinopriL 5 MG TABLET PO (10:00)
[2021-07-15] MEDS: METOPROLOL SUCCINATE EXT REL 50 MG TABCR PO (10:00)
[2021-07-15] MEDS: FAMOTIDINE 10 MG TABLET PO (10:00)
--- NOTE | 2021-07-15 10:34 | PM.CNCAR ---
Assessment and Plan Assessment and plan (1) Vasovagal syncope: Code(s): R55 - Syncope and collapse Status: Acute Assessment and Plan: Secondary to symptomatic hypotension with documented orthostasis initially likely secondary to medications particularly his diuretics. no evidence of symptomatic bradycardia or high-grade AV block. No evidence of active bleed, H&H stable. - continue IV fluid hydration. Renal function improving close to baseline now. - Check orthostatic vital signs. If no longer orthostatic and he is asymptomatic discontinue IV fluids. If so may consider discharge home later today if he remains asymptomatic addendum to hold diuretic therapy for the next several days anticipating reinitation jenny Bumex 2 mg daily or 1mg daily along with Spironolactone 25mg daily. He will eventually require diuretic therapy as an outpatient. I do not plan on resuming Metolazone. - Discussed at length with the patient plan of care. He verbalized understanding and agreed with recommendations. Will see how he was responds to therapy and orthostatic vital signs. - He will need to follow-up in the office again in 1-2 weeks. BMP as an outpatient in 1 week. He will follow daily weight and communicate any further weight gain, edema or shortness of breath with recommendations to reinitiate diuretic therapy at that time. Anticipate he will be discharged without diuretic therapy this hospitalization. Of note, patient continues to have good urine output in the absence of diuretic therapy so will need to be cautious with regards to volume status. Further recommendation to follow after review of orthostatic vital signs and patient's symptoms. (2) Acute kidney injury superimposed on chronic kidney disease: Code(s): N17.9 - Acute kidney failure, unspecified; N18.9 - Chronic kidney disease, unspecified Status: Acute Assessment and Plan: Nearing baseline with IV fluid hydration and discontinuation of diuretic therapy. See above. (3) Chronic HFrEF (heart failure with reduced ejection fraction): Code(s): I50.22 - Chronic systolic (congestive) heart failure Status: Acute Assessment and Plan: Compensated. Management as above. (4) CAD (coronary artery disease): Code(s): I25.10 - Atherosclerotic heart disease of [place] coronary artery without angina pectoris Status: Acute Assessment and Plan: Continue other supportive medications with aspirin, metoprolol, atorvastatin and likely lisinopril 2.5 mg daily. No anginal symptoms. (5) Status post mitral valve annuloplasty: Onset Date: 03/27/17 Code(s): Z98.890 - Other specified postprocedural states Status: Acute Assessment and Plan: No acute issues. (6) Hx of CABG: Code(s): Z95.1 - Presence of aortocoronary bypass graft Status: Inactive Assessment and Plan: stable no acute issues History of Present Illness History of Present Illness Consult date/time: Date of service:07/15/21 10:34 Cardiology consultation at the request of Dr. Izquierdo for our opinion regarding syncope and orthostatic hypotension Requesting physician: Tonia Izquierdo, DO Consult reason: chest pain and Other ( syncope, orthostatic hypotension) Reason For Visit: Acute Renal Insufficiency, Syncopy Thrombocytopeni Narrative: patient is a pleasant 56-year-old male with a past medical history significant for CAD status post CABG, mitral valve annuloplasty, hypertension, chronic kidney disease stage 3 who was recently admitted earlier this June secondary to group G streptococcal bacteremia related to left lower extremity cellulitis. He was also managed for CHF exacerbation as he had been without insurance and has been off medications for very long time. He diuresed well and was discharged home on metolazone, Bumex and spironolactone. He has been compliant with this regimen and 100 seen in the office where he had reported additio
--- NOTE | 2021-07-15 16:33 | PM.DS ---
DS: Admitting Diagnosis Discharge Date 07/15/2020 Admitting Diagnosis (1) Syncope: (2) Acute kidney injury superimposed on chronic kidney disease: (3) Dehydration: (4) Chin laceration: DS: Discharge Diagnosis Discharge Diagnosis (1) Syncope: Qualifiers: Syncope type: unspecified Qualified Code(s): R55 - Syncope and collapse Code(s): R55 - Syncope and collapse Status: Acute (2) Acute kidney injury superimposed on chronic kidney disease: Code(s): N17.9 - Acute kidney failure, unspecified; N18.9 - Chronic kidney disease, unspecified Status: Acute (3) Dehydration: Code(s): E86.0 - Dehydration Status: Acute (4) Chin laceration: Qualifiers: Encounter type: subsequent encounter Qualified Code(s): S01.81XD - Laceration without foreign body of other part of head, subsequent encounter Code(s): S01.81XA - Laceration without foreign body of other part of head, initial encounter Status: Acute DS: Summary Hospital Course Reason for hospitalization: syncope Hospital Course: Please refer to admission H& P. Briefly,56-year-old male with past medical history of coronary artery disease status post CABG, mitral valve annuloplasty, hypertension, and chronic kidney disease who presented to the ER after having a syncopal episode. The patient had had a recent hospitalization 06/13/2021 through 06/21/2021 due to bacteremia and sepsis from group G streptococcal infection associated with cellulitis from the left lower extremity and CHF exacerbation. During that hospitalization he treated with antibiotics and completed his antibiotic course when he went home. He was also placed on metolazone and Bumex. Patient has difficulty observing the fluid restriction; his muscles range. Her still the time. He was standing when he began to feel lightheaded, dizzy he tried to sit on the chair but did not pass out and fell to the ground. When he woke up he was able to stand up but fell confused 4 minute O2. Patient rim reports weighing himself every day and denies recent weight gain. On arrival to the ED his blood pressure was on the low side at 94/65. He was evaluated by Cardiology. This episode is likely secondary to symptomatic hypotension with documented orthostasis initially likely secondary to medications particularly his diuretics. no evidence of symptomatic bradycardia or high-grade AV block. No evidence of active bleed, H&H stable. -per cardiology recommendation, we continued IV fluid hydration. Renal function improving close to baseline now. -we reheck orthostatic vital signs. Patient was no longer orthostatic and he was asymptomatic so we discontinued IV fluids. - Acute kidney injury likely due to volume depletion from over-diuresis. Will hold the Bumex and metolazone. If so may consider discharge home later today if he remains asymptomatic addendum to hold diuretic therapy for the next several days anticipating reinitation of Bumex 2 mg daily or 1mg daily along with Spironolactone 25mg daily 7 days after discharge. He will eventually require diuretic therapy as an outpatient. There is no plan to resume Metolazone. Patient will follow-up with cardiology in the office again in 1-2 weeks. BMP as an outpatient in 1 week. He will follow daily weight and communicate any further weight gain, edema or shortness of breath with recommendations to reinitiate diuretic therapy at that time. Anticipate he will be discharged without diuretic therapy this hospitalization. Of note, patient continues to have good urine output in the absence of diuretic therapy so will need to be cautious with regards to volume status. Further recommendation to follow after review of orthostatic vital signs and patient's symptoms. Status at Discharge Functional status at discharge: independent ambulation Overall status at discharge: patient is back to baseline Time Spent with Patient Time attestation: Total time spent providing
== END 2021-07-15 17:45 | disposition home or self-care (01) ==
LOC: ANHED 12:48 → ANH2MED 07-15 16:30 → ANH3MEDSUR 07-16 13:50
PROVIDERS: Admitting Provider Internal Medicine; Emergency Provider Emergency Medicine; PCP Family Medicine; Visit Provider Internal Medicine
DX: R55 Syncope and collapse (principal); S01.81XA Laceration without foreign body of other part of head, initial encounter; N17.9 Acute kidney failure, unspecified; E86.0 Dehydration; I12.9 Hypertensive chronic kidney disease with stage 1 through stage 4 chronic kidney disease, or unspecified chronic kidney disease; I50.22 Chronic systolic (congestive) heart failure; I25.10 Atherosclerotic heart disease of native coronary artery without angina pectoris; N18.30 Chronic kidney disease, stage 3 unspecified; I25.2 Old myocardial infarction; E78.5 Hyperlipidemia, unspecified; G47.33 Obstructive sleep apnea (adult) (pediatric); W19.XXXA Unspecified fall, initial encounter; Z90.49 Acquired absence of other specified parts of digestive tract; Z95.1 Presence of aortocoronary bypass graft; Z87.891 Personal history of nicotine dependence; Z79.82 Long term (current) use of aspirin; Z79.899 Other long term (current) drug therapy
CPT/HCPCS: 12011; 36415; 70450; 70486; 71045; 80053; 81003; 83880; 84484; 85025; 85055; 85610; 85730; 90471; 90715; 93005; 96360; 96361; 99285; A9270; G0378; G0379; J7030; J7040